=== PATIENT | female | born 1935 | race Caucasian/White ===

== ENCOUNTER 2019-07-15 12:10 | Inpatient (IN) | payer MEDICARE ==
[2019-07-15] MEDS ORDERED: SODIUM CHLORIDE 0.9% 1,000 ML IV ONE ×2 (13:30)
[2019-07-15] MEDS ORDERED: KETOROLAC 30 MG/ML 1 ML VIAL IVP STA (13:33)
[2019-07-15] MEDS ORDERED: ACETAMINOPHEN TAB 500 MG TAB PO STA (13:33)
--- NOTE | 2019-07-15 13:46 | ED ---
Altered Mental Status HPI - General Chief Complaint: Altered Mental Status Stated Complaint: pain all over, confusion Time Seen by Provider: 07/15/19 12:38 Source: patient, family, RN notes reviewed, old records reviewed Mode of arrival: wheelchair Limitations: no limitations - History of Present Illness Initial Comments: Patient is an 9-year-old female, presents emergency room today with her brother and her neighbor. She presents today with fever chills, some episodes of confusion, also complains of a sore throat and general body aches. Patient reports that she has had no associated chest pain. Denies any history of sick contacts. Patient also complains of some drainage from her right eye as well. She relates that she has had some visual hallucinations today patient's this morning today when walking into her living room stating that she saw Bird. She then that quickly realized this was not the case. She denies any headache at this time. Her main complaint is just diffuse body aches. She also states she's not been eating or drinking well. - Related Data Allergies Allergy/AdvReac Type Severity Reaction Status Date / Time celecoxib [From Celebrex] Allergy Rash/Hives Verified 07/15/19 12:18 infliximab [From Remicade] Allergy Rash/Hives Verified 07/15/19 12:18 Review of Systems ROS Statement: Those systems with pertinent positive or pertinent negative responses have been documented in the HPI. ROS Other: All systems not noted in ROS Statement are negative. Past Medical History Past Medical History: Diabetes Mellitus, Hyperlipidemia, Hypertension Additional Past Medical History / Comment(s): basal cell CA History of Any Multi-Drug Resistant Organisms: None Reported Additional Past Surgical History / Comment(s): breast biopsy Past Psychological History: No Psychological Hx Reported Smoking Status: Never smoker Past Alcohol Use History: None Reported Past Drug Use History: None Reported General Exam - General Exam Comments Initial Comments: 83-year-old female. Alert and oriented 3 at this time. Patient appears quite dehydrated. Dry lips and skin. Limitations: no limitations General appearance: alert, in no apparent distress Head exam: Present: atraumatic, normocephalic, normal inspection Eye exam: Present: normal appearance, PERRL, EOMI. Absent: scleral icterus, conjunctival injection, periorbital swelling ENT exam: Present: mucous membranes dry, mucous membranes moist. Absent: normal exam, normal oropharynx Neck exam: Present: normal inspection. Absent: tenderness, meningismus, lymphadenopathy Respiratory exam: Present: normal lung sounds bilaterally. Absent: respiratory distress, wheezes, rales, rhonchi, stridor Cardiovascular Exam: Present: regular rate, normal rhythm, normal heart sounds. Absent: systolic murmur, diastolic murmur, rubs, gallop, clicks GI/Abdominal exam: Present: soft, normal bowel sounds. Absent: distended, tenderness, guarding, rebound, rigid Extremities exam: Present: normal inspection, full ROM, normal capillary refill. Absent: tenderness, pedal edema, joint swelling, calf tenderness Back exam: Present: normal inspection Neurological exam: Present: alert, oriented X3, CN II-XII intact Psychiatric exam: Present: normal affect, normal mood Skin exam: Present: warm, dry, intact, normal color. Absent: rash Course Vital Signs 07/15/19 07/15/19 07/15/19 12:12 13:21 13:30 Temperature 99.9 F H Pulse Rate 82 110 H Respiratory 18 18 Rate Blood Pressure 143/70 134/71 O2 Sat by Pulse 98 81 L 96 Oximetry 07/15/19 07/15/19 07/15/19 13:40 13:50 14:00 Temperature Pulse Rate 112 H 110 H 110 H Respiratory 16 16 28 H Rate Blood Pressure 143/75 166/96 166/96 O2 Sat by Pulse 97 98 97 Oximetry 07/15/19 07/15/19 14:10 14:30 Temperature Pulse Rate 114 H 111 H Respiratory 25 H 14 Rate Blood Pressure 166/96 150/83 O2 Sat by Pulse 96 95 Oximetry Medical Decision Making - Medical Decision Making 83-year-old female presents with concern for dehydration, diffuse body aches, some back discomfort and fevers. Patient's febrile, temperature 100, tachycardic. Labs show evidence of some mild transaminase. Does have elevated lactic acid 2.2. BUN of 30 creatinine of 1.05. Urinalysis shows no acute infection. She does have leukocytosis of 18,000 with a left shift with 16,000. Ultrasound of the gallbladder was completed and shows no signs of acute cholecystitis at this time. Patient also reported some episodes of confusion. She is alert and oriented times here, no acute neurological deficits. CT of the brain was ordered and did show some sinusitis, but no acute intracranial process. She has no signs of auditory or visual hallucinations here. Patient given Rocephin for infection coverage at this time. Blood cultures were completed as well. I discussed case with Dr. Mckeon and discussed the case with Sounds physician. - Lab Data Result diagrams: 07/15/19 13:28 07/15/19 13:28 Lab Results 07/15/19 07/15/19 07/15/19 Range/Units 13:28 13:28 13:28 WBC 18.2 H (3.8-10.6) k/uL RBC 4.60 (3.80-5.40) m/uL Hgb 13.1 (11.4-16.0) gm/dL Hct 40.4 (34.0-46.0) % MCV 87.9 (80.0-100.0) fL MCH 28.5 (25.0-35.0) pg MCHC 32.5 (31.0-37.0) g/dL RDW 13.8 (11.5-15.5) % Plt Count 244 (150-450) k/uL Neutrophils % 92 % Lymphocytes % 1 % Monocytes % 4 % Eosinophils % 1 % Basophils % 1 % Neutrophils # 16.7 H (1.3-7.7) k/uL Lymphocytes # 0.2 L (1.0-4.8) k/uL Monocytes # 0.7 (0-1.0) k/uL Eosinophils # 0.1 (0-0.7) k/uL Basophils # 0.3 H (0-0.2) k/uL PT (9.0-12.0) sec INR (<1.2) APTT (22.0-30.0) sec Sodium 137 (137-145) mmol/L Potassium 3.4 L (3.5-5.1) mmol/L Chloride 97 L (98-107) mmol/L Carbon Dioxide 27 (22-30) mmol/L Anion Gap 13 mmol/L BUN 30 H (7-17) mg/dL Creatinine 1.05 H (0.52-1.04) mg/dL Est GFR (CKD-EPI)AfAm 57 (>60 ml/min/1.73 sqM) Est GFR (CKD-EPI)NonAf 50 (>60 ml/min/1.73 sqM) Glucose 204 H (74-99) mg/dL Plasma Lactic Acid Shadi 2.2 H* (0.7-2.0) mmol/L Calcium 9.4 (8.4-10.2) mg/dL Total Bilirubin 1.1 (0.2-1.3) mg/dL AST 125 H (14-36) U/L ALT 77 H (4-34) U/L Alkaline Phosphatase 143 H (38-126) U/L Troponin I (0.000-0.034) ng/mL Total Protein 7.1 (6.3-8.2) g/dL Albumin 4.0 (3.5-5.0) g/dL Urine Color Urine Appearance (Clear) Urine pH (5.0-8.0) Ur Specific [place] (1.001-1.035) Urine Protein (Negative) Urine Glucose (UA) (Negative) Urine Ketones (Negative) Urine Blood (Negative) Urine Nitrite (Negative) Urine Bilirubin (Negative) Urine Urobilinogen (<2.0) mg/dL Ur Leukocyte Esterase (Negative) Urine WBC (0-5) /hpf Ur Squamous Epith Cells (0-4) /hpf Hyaline Casts (0-2) /lpf Urine Mucus (None) /hpf Urine Opiates Screen (NotDetected) Ur Oxycodone Screen (NotDetected) Urine Methadone Screen (NotDetected) Ur Propoxyphene Screen (NotDetected) Ur Barbiturates Screen (NotDetected) U Tricyclic Antidepress (NotDetected) Ur Phencyclidine Scrn (NotDetected) Ur Amphetamines Screen (NotDetected) U Methamphetamines Scrn (NotDetected) U Benzodiazepines Scrn (NotDetected) Urine Cocaine Screen (NotDetected) U Marijuana (THC) Screen (NotDetected) Influenza Type A RNA (Not Detectd) Influenza Type B (PCR) (Not Detectd) 07/15/19 07/15/19 07/15/19 Range/Units 13:28 13:28 13:28 WBC (3.8-10.6) k/uL RBC (3.80-5.40) m/uL Hgb (11.4-16.0) gm/dL Hct (34.0-46.0) % MCV (80.0-100.0) fL MCH (25.0-35.0) pg MCHC (31.0-37.0) g/dL RDW (11.5-15.5) % Plt Count (150-450) k/uL Neutrophils % % Lymphocytes % % Monocytes % % Eosinophils % % Basophils % % Neutrophils # (1.3-7.7) k/uL Lymphocytes # (1.0-4.8) k/uL Monocytes # (0-1.0) k/uL Eosinophils # (0-0.7) k/uL Basophils # (0-0.2) k/uL PT 10.5 (9.0-12.0) sec INR 1.0 (<1.2) APTT 27.7 (22.0-30.0) sec Sodium (137-145) mmol/L Potassium (3.5-5.1) mmol/L Chloride (98-107) mmol/L Carbon Dioxide (22-30) mmol/L Anion Gap mmol/L BUN (7-17) mg/dL Creatinine (0.52-1.04) mg/dL Est GFR (CKD-EPI)AfAm (>60 ml/min/1.73 sqM) Est GFR (CKD-EPI)NonAf (>60 ml/min/1.73 sqM) Glucose (74-99) mg/dL Plasma Lactic Acid Shadi (0.7-2.0) mmol/L Calcium (8.4-10.2) mg/dL Total Bilirubin (0.2-1.3) mg/dL AST (14-36) U/L ALT (4-34) U/L Alkaline Phosphatase (38-126) U/L Troponin I 0.026 (0.000-0.034) ng/mL Total Protein (6.3-8.2) g/dL Albumin (3.5-5.0) g/dL Urine Color Urine Appearance (Clear) Urine pH (5.0-8.0) Ur Specific [place] (1.001-1.035) Urine Protein (Negative) Urine Glucose (UA) (Negative) Urine Ketones (Negative) Urine Blood (Negative) Urine Nitrite (Negative) Urine Bilirubin (Negative) Urine Urobilinogen (<2.0) mg/dL Ur Leukocyte Esterase (Negative) Urine WBC (0-5) /hpf Ur Squamous Epith Cells (0-4) /hpf Hyaline Casts (0-2) /lpf Urine Mucus (None) /hpf Urine Opiates Screen (NotDetected) Ur Oxycodone Screen (NotDetected) Urine Methadone Screen (NotDetected) Ur Propoxyphene Screen (NotDetected) Ur Barbiturates Screen (NotDetected) U Tricyclic Antidepress (NotDetected) Ur Phencyclidine Scrn (NotDetected) Ur Amphetamines Screen (NotDetected) U Methamphetamines Scrn (NotDetected) U Benzodiazepines Scrn (NotDetected) Urine Cocaine Screen (NotDetected) U Marijuana (THC) Screen (NotDetected) Influenza Type A RNA Not Detected (Not Detectd) Influenza Type B (PCR) Not Detected (Not Detectd) 07/15/19 Range/Units 13:50 WBC (3.8-10.6) k/uL RBC (3.80-5.40) m/uL Hgb (11.4-16.0) gm/dL Hct (34.0-46.0) % MCV (80.0-100.0) fL MCH (25.0-35.0) pg MCHC (31.0-37.0) g/dL RDW (11.5-15.5) % Plt Count (150-450) k/uL Neutrophils % % Lymphocytes % % Monocytes % % Eosinophils % % Basophils % % Neutrophils # (1.3-7.7) k/uL Lymphocytes # (1.0-4.8) k/uL Monocytes # (0-1.0) k/uL Eosinophils # (0-0.7) k/uL Basophils # (0-0.2) k/uL PT (9.0-12.0) sec INR (<1.2) APTT (22.0-30.0) sec Sodium (137-145) mmol/L Potassium (3.5-5.1) mmol/L Chloride (98-107) mmol/L Carbon Dioxide (22-30) mmol/L Anion Gap mmol/L BUN (7-17) mg/dL Creatinine (0.52-1.04) mg/dL Est GFR (CKD-EPI)AfAm (>60 ml/min/1.73 sqM) Est GFR (CKD-EPI)NonAf (>60 ml/min/1.73 sqM) Glucose (74-99) mg/dL Plasma Lactic Acid Shadi (0.7-2.0) mmol/L Calcium (8.4-10.2) mg/dL Total Bilirubin (0.2-1.3) mg/dL AST (14-36) U/L ALT (4-34) U/L Alkaline Phosphatase (38-126) U/L Troponin I (0.000-0.034) ng/mL Total Protein (6.3-8.2) g/dL Albumin (3.5-5.0) g/dL Urine Color Yellow Urine Appearance Clear (Clear) Urine pH 6.0 (5.0-8.0) Ur Specific [place] 1.025 (1.001-1.035) Urine Protein 2+ H (Negative) Urine Glucose (UA) Negative (Negative) Urine Ketones Trace H (Negative) Urine Blood Negative (Negative) Urine Nitrite Negative (Negative) Urine Bilirubin Negative (Negative) Urine Urobilinogen 2.0 (<2.0) mg/dL Ur Leukocyte Esterase Negative (Negative) Urine WBC 3 (0-5) /hpf Ur Squamous Epith Cells 1 (0-4) /hpf Hyaline Casts 1 (0-2) /lpf Urine Mucus Rare H (None) /hpf Urine Opiates Screen Not Detected (NotDetected) Ur Oxycodone Screen Not Detected (NotDetected) Urine Methadone Screen Not Detected (NotDetected) Ur Propoxyphene Screen Not Detected (NotDetected) Ur Barbiturates Screen Not Detected (NotDetected) U Tricyclic Antidepress Not Detected (NotDetected) Ur Phencyclidine Scrn Not Detected (NotDetected) Ur Amphetamines Screen Not Detected (NotDetected) U Methamphetamines Scrn Not Detected (NotDetected) U Benzodiazepines Scrn Not Detected (NotDetected) Urine Cocaine Screen Not Detected (NotDetected) U Marijuana (THC) Screen Not Detected (NotDetected) Influenza Type A RNA (Not Detectd) Influenza Type B (PCR) (Not Detectd) 07/15/19 13:45 EKG shows sinus tachycardia, biatrial enlargement. Right bundle branch block. Left anterior fascicular block. Biphasic block. Abnormal EKG is noted. Ventricular rate of 111 bpm. AL interval is 152 ms QRS duration is 150 mils seconds. QT QTc is 392/533 ms. - Radiology Data Radiology results: report reviewed Chest x-ray shows no focal consolidation to suggest pneumonia. Right hemidiaphragm elevation is seen and could be chronic. Other i-STAT test can be performed. CT shows no acute intracranial hemorrhage or midline shift. Mild diffuse age-related cervical atrophy and mild to moderate chronic small vessel ischemic change. Acute on chronic paranasal sinus disease is felt present. Suboptimal evaluation due to overlying bowel gas. Gallbladder is partially obscured however no sonographic evidence of cholelithiasis or acute cholecys titis. Liver is partially obscured. Disposition Clinical Impression: Fever, Dehydration, Leukocytosis Disposition: ADMITTED IP TO THIS HOSP Condition: Stable Is patient prescribed a controlled substance at d/c from ED?: No Referrals: Jo Simons MD [Primary Care Provider] - 1-2 days Time of Disposition: 16:24
[2019-07-15 13:48] LABS: Basophils # (A) 0.3 k/uL (0-0.2); Basophils % (A) 1 %; Eosinophils # (A) 0.1 k/uL (0-0.7); Eosinophils % (A) 1 %; HCT 40.4 % (34.0-46.0); HGB 13.1 gm/dL (11.4-16.0); Lymphocytes # (A) 0.2 k/uL (1.0-4.8); Lymphocytes % (A) 1 %; MCH 28.5 pg (25.0-35.0); MCHC 32.5 g/dL (31.0-37.0); MCV 87.9 fL (80.0-100.0); Mean Platelet Volume 7.3; Monocytes # (A) 0.7 k/uL (0-1.0); Monocytes % (A) 4 %; Neutrophils # (A) 16.7 k/uL (1.3-7.7); Neutrophils % (A) 92 %; Platelet Count 244 k/uL (150-450); RDW 13.8 % (11.5-15.5); WBC 18.2 k/uL (3.8-10.6)
[2019-07-15 14:03] LABS: Calcium 9.4 mg/dL (8.4-10.2); Prothrombin Time 10.5 sec (9.0-12.0); Total Bilirubin 1.1 mg/dL (0.2-1.3); Total Protein 7.1 g/dL (6.3-8.2)
[2019-07-15 14:04] LABS: Partial Thromboplastin Time 27.7 sec (22.0-30.0)
--- NOTE | 2019-07-15 14:17 | XR ---
EXAMINATION TYPE: XR chest 2V DATE OF EXAM: 07/15/2019 COMPARISON: NONE HISTORY: Altered mental status TECHNIQUE: Frontal and lateral views of the chest are obtained. FINDINGS: There is no focal air space opacity, pleural effusion, or pneumothorax seen. Right hemidia phragm elevation. The cardiac silhouette size is within normal limits. The osseous structures are i ntact. Exaggerated thoracic kyphosis is seen. IMPRESSION: No focal consolidation to suggest pneumonia. Right hemidiaphragm elevation is seen that could be chronic. Otherwise, sniff test could be performed to evaluate for diaphragmatic paresis.
[2019-07-15] MEDS ORDERED: cefTRIAXone IN SWFI 1,000 MG/10 ML SYRINGE IVP STA (14:22)
[2019-07-15 14:24] LABS: Appearance,Urine Clear (Clear); Bilirubin,Urine Negative (Negative); Blood,Urine Negative (Negative); Color,Urine Yellow; Glucose,Urine (UA) Negative (Negative); Hyaline Casts,Urine 1 /lpf (0-2); Ketones,Urine Trace (Negative); Leukocyte Esterase,Urine Negative (Negative); Mucus,Urine Rare /hpf; Nitrite,Urine Negative (Negative); Protein,Urine 2+ (Negative); Specific Gravity,Urine 1.025 (1.001-1.035); Squamous Epithelial Cell,Urine 1 /hpf (0-4); WBC,Urine 3 /hpf (0-5)
[2019-07-15 14:33] LABS: Amphetamine Screen,Urine Not Detected (NotDetected); Barbiturate Screen,Urine Not Detected (NotDetected); Benzodiazepines Screen,Urine Not Detected (NotDetected); Cocaine Screen,Urine Not Detected (NotDetected); Methadone Screen, Urine Not Detected (NotDetected); Opiate Screen,Urine Not Detected (NotDetected); Oxycodone Screen, Urine Not Detected (NotDetected); Phencyclidine Screen,Urine Not Detected (NotDetected); Tricyclic Antidepressant,Urine Not Detected (NotDetected); Urn Cannabinoid Scrn Not Detected (NotDetected)
[2019-07-15 14:42] LABS: Potassium 3.4 mmol/L (3.5-5.1)
--- NOTE | 2019-07-15 15:22 | US ---
EXAMINATION TYPE: US gallbladder DATE OF EXAM: 07/15/2019 COMPARISON: NONE CLINICAL HISTORY: elevated transaminase, fever. EXAM MEASUREMENTS: Liver Length: 13.4 cm Gallbladder Wall: 0.2 cm CBD: 0.4 cm Right Kidney: 9.2 x 4.4 x3.7 cm cm Pancreas: Tail obscured by overlying bowel gas Liver: Partially Obscured by overlying bowel gas Gallbladder: Partially Obscured by overlying bowel gas. No stones seen. Wall not thickened. Evidence for sonographic Pantoja's sign: No CBD: wnl Right Kidney: wnl IMPRESSION: Suboptimal evaluation due to overlying bowel gas. Gallbladder is partially obscured howev er no sonographic evidence of cholelithiasis or acute cholecystitis is seen. The liver is also partia lly obscured. No gross masses seen.
--- NOTE | 2019-07-15 15:53 | CT ---
EXAMINATION TYPE: CT brain wo con DATE OF EXAM: 07/15/2019 HISTORY: Weakness and fever. CT DLP: 1096.4 mGycm. Automated Exposure Control for Dose Reduction was Utilized. TECHNIQUE: CT scan of the head is performed without contrast. COMPARISON: None. FINDINGS: There is no acute intracranial hemorrhage or midline shift identified. There is diffuse v entricular and sulcal prominence consistent with diffuse age-related cerebral atrophy. There is low- attenuation in the periventricular white matter consistent with chronic small vessel ischemic change in patient of this age. Air-fluid level in the right maxillary sinus. Mild to moderate posterior muco suri thickening left maxillary sinus. Fluid opacity bilateral sphenoid sinuses. Some diffuse opacity o f bilateral ethmoid sinuses. IMPRESSION: No acute intracranial hemorrhage or midline shift. There is mild diffuse age-related ce rebral atrophy and mild to moderate chronic small vessel ischemic change noted. Acute on chronic para nasal sinus disease is felt present, correlate clinically
[2019-07-15] MEDS ORDERED: NALOXONE 0.4 MG/ML 1 ML VIAL IV PRN (16:26)
[2019-07-15] MEDS ORDERED: MORPHINE SULFATE 4 MG/ML SYRINGE IV PRN (16:26)
[2019-07-15] MEDS ORDERED: LORazepam 2 MG/ML INJ IV PRN (16:26)
[2019-07-15] MEDS ORDERED: IBUPROFEN 400 MG TAB PO PRN (16:26)
[2019-07-15] MEDS ORDERED: traMADol 50 MG TAB PO PRN (16:26)
[2019-07-15] MEDS ORDERED: KETOROLAC 30 MG/ML 1 ML VIAL IVP PRN (16:26)
[2019-07-15] MEDS ORDERED: SODIUM CHLORIDE 0.9% 1,000 ML IV SCH ×2 (16:30→17:30)
[2019-07-15] MEDS ORDERED: DEXTROSE 5%-0.45% NACL 1,000 ML IV SCH (17:00)
[2019-07-15] MEDS ORDERED: AZITHROMYCIN 500 MG TAB PO SCH (17:15)
[2019-07-15] MEDS ORDERED: THIAMINE 100 MG TAB PO SCH (17:15)
--- NOTE | 2019-07-15 17:17 | P.HPIM ---
History of Present Illness Chief Complaint: Generalized weakness This is a 83-year-old female with past medical history of rheumatoid arthritis and hypothyroidism who came to emergency department for ablation of generalized weakness and confusion. Patient history begins about 2 weeks ago when she developed URI like illness. Otherwise very active patient in good functional status became very weak and drained tired with low some malaise and started spending most of the time in the bed. Her appetite was diminished his she felt nauseated, her oral intake significantly diminished which lead to more weakness. Patient is not seeking any medical help for this notion to continue antibiotics in the test. Her weakness progressed and day of admission she was unable to get out of the bed. She was sweating profusely soaking her bed in sweat. She felt musculoskeletal pain and discomfort all over her body. She had some loose bowel movements no shanelle diarrhea or blood in the stool. She did not have any headache or vision changes. She still complaining of sore dry throat. She has some mild minimally productive cough. No chest pain or palpitations. She not experience any joint swelling, skin rashes. Patient was diagnosed with rheumatoid arthritis over 30 years ago and had multiple TB tests that were negative in the past. She is to be on biologic spot for many years now she has been on methotrexate. She denies any recent [place] eling or sick contacts. She denies any exposure to any animals. In emergency department she was found to have white cell count of 18 with predominance of neutrophils. Potassium was 3.4 and creatinine BUN elevated with elevated glucose. Lactic acid was 2.2 and she has mildly elevated liver enzymes and alk phos with normal bilirubin. CT of the head was unremarkable. Ultrasound of the right upper quadrant was not definitive for cholecystitis. Chest x-ray did not show any acute infiltrates. She was given IV fluids and ceftriaxone she is reporting feeling slightly better Review of Systems Review of systems performed and negative except mentioned in HPI Past Medical History Past Medical History: Diabetes Mellitus, Hyperlipidemia, Hypertension Additional Past Medical History / Comment(s): basal cell CA History of Any Multi-Drug Resistant Organisms: None Reported Additional Past Surgical History / Comment(s): breast biopsy Past Psychological History: No Psychological Hx Reported Smoking Status: Never smoker Past Alcohol Use History: None Reported Past Drug Use History: None Reported Medications and Allergies Allergies Allergy/AdvReac Type Severity Reaction Status Date / Time celecoxib [From Celebrex] Allergy Rash/Hives Verified 07/15/19 12:18 infliximab [From Remicade] Allergy Rash/Hives Verified 07/15/19 12:18 Physical Exam Vitals: Vital Signs Temp Pulse Resp BP Pulse Ox 07/15/19 16:48 90 18 147/71 98 07/15/19 14:30 111 H 14 150/83 95 07/15/19 14:10 114 H 25 H 166/96 96 07/15/19 14:00 110 H 28 H 166/96 97 07/15/19 13:50 110 H 16 166/96 98 07/15/19 13:40 112 H 16 143/75 97 07/15/19 13:30 110 H 18 134/71 96 07/15/19 13:21 81 L 07/15/19 12:12 99.9 F H 82 18 143/70 98 Intake and Output 07/15/19 07/15/19 07/15/19 06:59 14:59 22:59 Other: Weight 65.771 kg Vital Signs: I have reviewed the vital signs. GENERAL: Well-nourished, Well-developed , no apparent distress, cooperative, she appears fatigued and very tired Eyes: PERRL, extraoculry movements intact, she has mild redness on the conjunctiva of the right eye with mucoid exudate Head: : Atraumatic external nose and ears, oropharyngeal mucosa is red and dry without any exudates Neck: Symmetric, trachea midline, No thyromegaly, no masses or neck vain pulsation, no neck rigidity CVS: +S1/S2, No murmurs or gallops. Peripheral pulses 2+ and equal in all extremities. RESP: Unlabored respiratory effort. Clear to auscultation bilaterally. Abdomen: Bowel sounds present in all 4 quadrants, Soft to palpation, Nontender/Nondistended, No hepatosplenomegaly, no hernias or masses, no CVA tnderness Musculoskeletal: Extremities w/o deformity, No cyanosis or clubbing, no joint swelling Skin: Warm, Dry. No rashes or lesions Neuro: electrician deck II-XII grossly intact, motor strenght 5/5 i upper and lower extremities, no clonus, patellar DTRs 2+ and sympetrical Psych: Awake, Alert, & Oriented (AAO) x3 Appropriate mood and affect Results CBC & Chem 7: 07/15/19 13:28 07/15/19 13:28 Labs: Abnormal Lab Results - Last 24 Hours (Table) 07/15/19 07/15/19 07/15/19 Range/Units 13:28 13:28 13:28 WBC 18.2 H (3.8-10.6) k/uL Neutrophils # 16.7 H (1.3-7.7) k/uL Lymphocytes # 0.2 L (1.0-4.8) k/uL Basophils # 0.3 H (0-0.2) k/uL Potassium 3.4 L (3.5-5.1) mmol/L Chloride 97 L (98-107) mmol/L BUN 30 H (7-17) mg/dL Creatinine 1.05 H (0.52-1.04) mg/dL Glucose 204 H (74-99) mg/dL Plasma Lactic Acid Shadi 2.2 H* (0.7-2.0) mmol/L AST 125 H (14-36) U/L ALT 77 H (4-34) U/L Alkaline Phosphatase 143 H (38-126) U/L Urine Protein (Negative) Urine Ketones (Negative) Urine Mucus (None) /hpf 07/15/19 Range/Units 13:50 WBC (3.8-10.6) k/uL Neutrophils # (1.3-7.7) k/uL Lymphocytes # (1.0-4.8) k/uL Basophils # (0-0.2) k/uL Potassium (3.5-5.1) mmol/L Chloride (98-107) mmol/L BUN (7-17) mg/dL Creatinine (0.52-1.04) mg/dL Glucose (74-99) mg/dL Plasma Lactic Acid Shadi (0.7-2.0) mmol/L AST (14-36) U/L ALT (4-34) U/L Alkaline Phosphatase (38-126) U/L Urine Protein 2+ H (Negative) Urine Ketones Trace H (Negative) Urine Mucus Rare H (None) /hpf Assessment and Plan Assessment: Impression: 1. Acute toxic metabolic encephalopathy 2. Extreme malaise 3. Sepsis 4. Respiratory illness 5. Acute kidney injury 6. Hypokalemia 7. Hypothyroid 8. Rheumatoid arthritis Plan: This is a 83-year-old female with history of rheumatoid arthritis was now presenting with protracted generalized illness. This started like URI-like symptoms with sore throat and nasal congestion and then started having protracted clinical course with generalized weakness malaise night sweats and low-grade fever with diminished oral intake and dehydration. Patient is extremely weak at this point and appears dehydrated. Influenza test was negative. The Main concern remains sepsis not immediately clearly obvious source although she does have some respiratory symptoms and CT of the head showed ascites. She has nasal congestion oropharyngeal erythema and cough. Blood cultures have been p erformed and we will continue patient on ceftriaxone and Zithromax for now. Other concern about the right upper quadrant ultrasound did not show acute cholecystitis liver enzymes mildly elevated she's getting hepatitis panel at this point. We will consider to revisit possibility of any gallbladder pathology but clinically indicated imaging for now not consistent with this finding Given the patient's previous rheumatological illness another concern remain polymyalgia rheumatica and giant cell arteritis getting diffuse musculoskeletal pain and weakness. Her neurological exam is intact hence I doubt clinically given bradycardia syndrome at this point. We'll obtain sedimentation rate and if extremely elevated we'll consider involving, rheumatology this point. check CPK Check pro-calcitonin Continue levothyroxine and check TSH Repeat chest x-ray after hydration patient is a full code Her brother is surrogate decision maker 2 or more midnights stay expected
[2019-07-15 19:10] LABS: C Reactive Protein 298.8 mg/L (<10.0)
[2019-07-15] MEDS: ASCORBIC ACID 500 MG TAB PO SCH (21:23)
[2019-07-15] MEDS: OXYMETAZOLINE 0.05% NASL SPRAY 1 SPRAY BOTTLE NASAL SCH (21:24)
[2019-07-15] MEDS: ACETAMINOPHEN TAB 325 MG TAB PO PRN (23:44)
[2019-07-15 23:51] LABS: Glucose,Whole Blood 151 mg/dL (75-99)
[2019-07-16 00:20] LABS: Hepatitis A Antibody IgM Non-Reactive (Non-Reactive); Hepatitis B Core IgM Non-Reactive (Non-Reactive); Hepatitis B Surface Antigen Non-Reactive (Non-Reactive); Hepatitis C IgG Antibody Non-Reactive (Non-Reactive)
--- NOTE | 2019-07-16 00:30 | XR ---
EXAMINATION TYPE: XR chest 1V portable DATE OF EXAM: 07/16/2019 COMPARISON: 07/15/2019 HISTORY: Altered mental status TECHNIQUE: FINDINGS: There is some elevation of the right diaphragm. There is mild atelectasis right lung base. There is no heart failure. Heart size is normal. There are no hilar masses. There is calcified granul omata in the right lower lobe. IMPRESSION: Mild atelectasis right lung base. No heart failure. Atelectasis slightly worse than exam yesterday.
[2019-07-16] MEDS ORDERED: RX INFO: IV CONTRAST WAS GIVEN 1 EACH MISC MISCELLANE PRN (00:37)
[2019-07-16] MEDS ORDERED: IOPAMIDOL CONTRAST (ORAL USE) VIAL PO PRN (00:37)
[2019-07-16 01:06] LABS: Basophils # (A) 0.1 k/uL (0-0.2); Basophils % (A) 0 %; Eosinophils # (A) 0.1 k/uL (0-0.7); Eosinophils % (A) 1 %; HCT 36.4 % (34.0-46.0); HGB 11.8 gm/dL (11.4-16.0); Lymphocytes # (A) 0.3 k/uL (1.0-4.8); Lymphocytes % (A) 2 %; MCH 29.1 pg (25.0-35.0); MCHC 32.4 g/dL (31.0-37.0); MCV 89.8 fL (80.0-100.0); Mean Platelet Volume 7.2; Monocytes # (A) 0.7 k/uL (0-1.0); Monocytes % (A) 4 %; Neutrophils # (A) 16.7 k/uL (1.3-7.7); Neutrophils % (A) 93 %; Platelet Count 205 k/uL (150-450); RBC 4.05 m/uL (3.80-5.40); WBC 17.9 k/uL (3.8-10.6)
[2019-07-16 01:13] LABS: Calcium 8.2 mg/dL (8.4-10.2); Potassium 2.9 mmol/L (3.5-5.1)
--- NOTE | 2019-07-16 01:22 | P.EN ---
A-team called for the patient at ~ 11:50 am. As per the nursing staff, the patient was walking to the restroom when she was noted to be shaking while standing, pale, diaphoretic, and in respiratory distress. She was placed back on the bed. The patient was evaluated at the bedside. Initial vitals: T 100.4, P130, SpO2 70% on RA, BP 168/72; subsequent vitals while on 100% on non-rebreath er: T 102.2 (axillary), P 140, SpO2 100%, BP 134/72. The patient was initially somewhat confused which then improved. She reported minimal SOB and feeling feverish but denied any additional complaints. Denied chest pain, SOB, abdominal pain, cough, nausea, vomiting, dysuria, headache, weakness, or visual disturbances. General: Ill-appearing F, in no acute distress, appears stated age, obese HEENT: NC/AT, anicteric sclerae, moist conjunctiva, no lid-lag, PERRLA Cardiovascular: S1/S2 wnl, tachycardic, no murmurs, rubs, or gallops Lungs: R base mild crackles, no ronchi or wheezing appreciated, normal respiratory effort, no accessory muscle use Abdominal: Soft, non-tender, non-distended, no guarding, rebound, or rigidity Skin: Warm, dry Extremities: No edema or contractures Psychiatric: Alert and oriented to person and time, knows she is in hospital though unable to name it Neuro: CN II-XII grossly intact, Strength 5/5 in all 4 extremities, Speech intact, Sensation to light touch grossly intact throughout. Kernig's and Brudzinski negative. No nuchal rigidity. Assessment/Plan Sepsis, unclear etiology -Patient currently on Azithromycin and Ceftriaxone -Transfer patient to selective -Stat portable CXR showing mildly worsened atelectasis but otherwise unremarkable -Repeat flu swab -Obtain CT chest abdomen and pelvis with contrast -Defer antibiotics until influenza testing and computed tomography scan -Administered 1 L of normal saline bolus
--- NOTE | 2019-07-16 01:33 | CT ---
EXAMINATION TYPE: CT ChestAbdPelvis w con DATE OF EXAM: 07/16/2019 COMPARISON: HISTORY: Patient presents with fever of unkown origin. CT DLP: 993.8 mGycm Automated exposure control for dose reduction was used. CONTRAST: Performed with IV Contrast, patient injected with 80mL mL of Isovue 300. Multiple axial sections were obtained from the thoracic inlet to the floor the pelvis with intravenou s contrast Isovue 80 mL. There is some patchy nodular infiltrate at the right posterior lung base. There is minimal subsegment al atelectasis at both lung bases. There is no pleural effusion. Heart size is normal. There calcifie d mediastinal lymph nodes. Thoracic aorta is intact. There is no pneumothorax. There is no pleural ef fusion. There is no pericardial effusion. Liver and spleen appear normal. Bile ducts are not dilated. Gallbladder appears normal. There is no p ancreatic mass. Stomach is intact. There is no adrenal mass. Kidneys show satisfactory contrast opacification. There is no hydronephrosi s. There are multiple small renal cysts that measure up to 1 cm. There is no evidence of a solid lev l mass. There is no perinephric fluid. There is no retroperitoneal adenopathy. Bladder distends eleanor hly. Abdominal aorta is atheromatous. There is no inguinal hernia. Uterus is anteverted. There is no free fluid in the pelvis. There is no mesenteric edema. There is no ascites or free air. There is no evidence of thickened appendix. Bony pelvis is intact. Thoracic and lumbar spine are intact. There is no compression fracture. There is no evidence of bowel obstruction. IMPRESSION: Old granulomatous disease. There is some mild nodular infiltrate right lower lobe. This could be a ca use for fever. This is likely inflammatory. No acute abnormality within the abdomen and pelvis.
[2019-07-16] MEDS: POTASSIUM CHLORIDE ER 20 MEQ TAB.ER PO SCH ×2 (01:59→05:26)
[2019-07-16] MEDS: POTASSIUM CHLORIDE 10 MEQ in WATER FOR INJECTION 1 100ML.BAG IVPB SCH ×2 (02:00→03:47)
[2019-07-16] MEDS ORDERED: VANCOMYCIN IV PER PHARMACY 1 EACH MISC MISCELLANE PRN (02:19)
[2019-07-16] MEDS ORDERED: CLOPIDOGREL 75 MG TAB PO STA (02:26)
[2019-07-16] MEDS ORDERED: HEPARIN SODIUM,PORCINE 5,000 UNIT/ML 1 ML VIAL IV ONE (02:28)
[2019-07-16] MEDS ORDERED: HEPARIN SODIUM,PORCINE 5,000 UNIT/ML 1 ML VIAL IV PRN (02:28)
[2019-07-16] MEDS ORDERED: HEPARIN SOD,PORK IN 0.45% NACL 25,000 UNIT in 0.45% NACL 1 250ML.BAG IV SCH (02:30)
[2019-07-16] MEDS ORDERED: CEFEPIME 2 GM in SODIUM CHLORIDE 0.9% 100 ML IVPB SCH (02:30)
[2019-07-16 03:08] LABS: INR 1.1 (<1.2); Partial Thromboplastin Time 28.6 sec (22.0-30.0)
[2019-07-16] MEDS ORDERED: VANCOMYCIN 1,000 MG in SODIUM CHLORIDE 0.9% 250 ML IVPB ONE ×2 (04:00→06:00)
[2019-07-16 06:48] LABS: HCT 36.6 % (34.0-46.0); HGB 11.8 gm/dL (11.4-16.0); MCH 29.1 pg (25.0-35.0); MCHC 32.2 g/dL (31.0-37.0); MCV 90.6 fL (80.0-100.0); Mean Platelet Volume 7.9; Platelet Count 218 k/uL (150-450); RBC 4.04 m/uL (3.80-5.40); RDW 14.1 % (11.5-15.5); WBC 25.9 k/uL (3.8-10.6)
[2019-07-16 07:14] LABS: Albumin 3.2 g/dL (3.5-5.0); Calcium 8.2 mg/dL (8.4-10.2); Potassium 3.7 mmol/L (3.5-5.1); Total Protein 6.3 g/dL (6.3-8.2)
[2019-07-16 07:29] LABS: Total Bilirubin 0.9 mg/dL (0.2-1.3)
--- NOTE | 2019-07-16 08:51 | P.PN ---
Subjective Summary: 83-year-old female with history of rheumatoid arthritis and hypothyroidism presented with 2 week history of of respiratory illness low-grade fever malaise and decrease by mouth intake. She started of initially with a sore throat and malaise and then became profoundly weak and tired with muscle aches bodyaches and cough and expectoration. She was started on sepsis protocol with IV fluids antibiotics blood cultures. Interval history: Events from last night noted. Patient had high-grade fever with tachycardia up to 140s. Her blood pressure was stable. Her mentation was stable. She did not complain of any chest pain or any significant shortness of breath order she did require some little but more oxygen than initially. She was treated with boluses of IV fluids, antipyretics, antibiotic coverage was broadened. EKG shows sinus tachycardia and pre-existing bifascicular block. Her troponin became acutely elevated and she was given 300 mg of Plavix and started on heparin drip. CT of the chest abdomen and pelvis showed right lower lobe infiltrate. CT of the head done in emergency department showed sinusitis. This morning patient states that she's feeling much better. She is up in the chair and she was feeling hungry this morning. She denies any chest pain. She feels that her breathing is a bit more difficult than yesterday but she maintains on 2 L of nasal cannula. She has a dry cough mostly minimally productive of yellowish sputum. She states that her all of her body aches and muscle aches have resolved. She denies any headache neck pain photophobia [place] vomiting abdominal pain or diarrhea. She states that she has more energy comparing to yesterday that overall she is feeling better. Patient states that she is not ALLERGIC to aspirin but only she was told to avoid taking NSAIDs to avoid stomach upset due to taking methotrexate. She states that she takes aspirin occasionally at home. Patient states that she has advanced directive and that she wishes to be DO NOT RESUSCITATE Objective - Vital Signs Vital signs: Vital Signs Temp 98.0 F 07/16/19 04:00 Pulse 111 H 07/16/19 04:00 Resp 18 07/16/19 04:00 BP 123/65 07/16/19 04:00 Pulse Ox 95 07/16/19 04:00 Intake & Output 07/15/19 07/16/19 07/16/19 18:59 06:59 18:59 Intake Total 1050 Output Total 700 Balance 350 Weight 65.771 kg 65.771 kg Intake: Intake, IV Titration 1050 Amount Cefepime 2 gm In Sodium 200 Chloride 0.9% 100 ml @ 200 mls/hr IVPB Q8H [facility] Rx#:[id number] Potassium Chloride 10 meq 200 In Water For Injection 1 100ml.bag @ 100 mls/hr IVPB Q1H [facility] Rx#: [id number] Sodium Chloride 0.9% 1, 400 000 ml @ 100 mls/hr IV . Q10H [facility] Rx#:[id number] Vancomycin 1,000 mg In 250 Sodium Chloride 0.9% 250 ml @ 125 mls/hr IVPB Q24H [facility] Rx#:[id number] Output: Urine 700 Other: Voiding Method Bedside Commode # Voids 1 - Exam Vital Signs: I have reviewed the vital signs. GENERAL: Well-nourished, Well-developed , no apparent distress, cooperative Eyes: PERRL, extraoculry movements intact, clear conjunctiva Head: : Atraumatic external nose and ears, oropharyngeal mucosa is moist without lesions or exudates Neck: Symmetric, trachea midline, No thyromegaly, no masses or neck vain pulsation, no neck rigidity CVS: Tachycardic, regular, no significant murmurs, no rubs RESP: Unlabored respiratory effort. Breath sounds are present bilaterally and her course, she has been basilar inspiratory crackles, he wheezes expiratory Abdomen: Bowel sounds present in all 4 quadrants, Soft to palpation, Nontender/Nondistended, No hepatosplenomegaly, no hernias or masses, no CVA tnderness Musculoskeletal: Extremities w/o deformity, No cyanosis or clubbing, no joint swelling Skin: Warm, Dry. 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, motor strenght 5/5 i upper and lower extremities, no clonus, patellar DTRs 2+ and sympetrical Psych: Awake, Alert, & Oriented (AAO) x3 Appropriate mood and affect - Labs CBC & Chem 7: 07/16/19 06:00 07/16/19 06:00 Labs: Abnormal Lab Results - Last 24 Hours (Table) 07/15/19 07/15/19 07/15/19 Range/Units 13:28 13:28 13:28 WBC 18.2 H (3.8-10.6) k/uL Neutrophils # 16.7 H (1.3-7.7) k/uL Lymphocytes # 0.2 L (1.0-4.8) k/uL Basophils # 0.3 H (0-0.2) k/uL Sodium (137-145) mmol/L Potassium 3.4 L (3.5-5.1) mmol/L Chloride 97 L (98-107) mmol/L BUN 30 H (7-17) mg/dL Creatinine 1.05 H (0.52-1.04) mg/dL Glucose 204 H (74-99) mg/dL POC Glucose (mg/dL) (75-99) mg/dL Plasma Lactic Acid Shadi 2.2 H* (0.7-2.0) mmol/L Calcium (8.4-10.2) mg/dL AST 125 H (14-36) U/L ALT 77 H (4-34) U/L Alkaline Phosphatase 143 H (38-126) U/L Troponin I (0.000-0.034) ng/mL C-Reactive Protein (<10.0) mg/L Albumin (3.5-5.0) g/dL TSH (0.465-4.680) mIU/L Urine Protein (Negative) Urine Ketones (Negative) Urine Mucus (None) /hpf 07/15/19 07/15/19 07/15/19 Range/Units 13:50 18:00 18:00 WBC (3.8-10.6) k/uL Neutrophils # (1.3-7.7) k/uL Lymphocytes # (1.0-4.8) k/uL Basophils # (0-0.2) k/uL Sodium (137-145) mmol/L Potassium (3.5-5.1) mmol/L Chloride (98-107) mmol/L BUN (7-17) mg/dL Creatinine (0.52-1.04) mg/dL Glucose (74-99) mg/dL POC Glucose (mg/dL) (75-99) mg/dL Plasma Lactic Acid Shadi 2.1 H* (0.7-2.0) mmol/L Calcium (8.4-10.2) mg/dL AST (14-36) U/L ALT (4-34) U/L Alkaline Phosphatase (38-126) U/L Troponin I (0.000-0.034) ng/mL C-Reactive Protein 298.8 H (<10.0) mg/L Albumin (3.5-5.0) g/dL TSH (0.465-4.680) mIU/L Urine Protein 2+ H (Negative) Urine Ketones Trace H (Negative) Urine Mucus Rare H (None) /hpf 07/15/19 07/15/19 07/16/19 Range/Units 22:20 23:39 00:45 WBC (3.8-10.6) k/uL Neutrophils # (1.3-7.7) k/uL Lymphocytes # (1.0-4.8) k/uL Basophils # (0-0.2) k/uL Sodium (137-145) mmol/L Potassium (3.5-5.1) mmol/L Chloride (98-107) mmol/L BUN (7-17) mg/dL Creatinine (0.52-1.04) mg/dL Glucose (74-99) mg/dL POC Glucose (mg/dL) 151 H (75-99) mg/dL Plasma Lactic Acid Shadi 2.1 H* (0.7-2.0) mmol/L Calcium (8.4-10.2) mg/dL AST (14-36) U/L ALT (4-34) U/L Alkaline Phosphatase (38-126) U/L Troponin I 0.544 H* (0.000-0.034) ng/mL C-Reactive Protein (<10.0) mg/L Albumin (3.5-5.0) g/dL TSH (0.465-4.680) mIU/L Urine Protein (Negative) Urine Ketones (Negative) Urine Mucus (None) /hpf 07/16/19 07/16/19 07/16/19 Range/Units 00:45 00:45 06:00 WBC 17.9 H (3.8-10.6) k/uL Neutrophils # 16.7 H (1.3-7.7) k/uL Lymphocytes # 0.3 L (1.0-4.8) k/uL Basophils # (0-0.2) k/uL Sodium 134 L 136 L (137-145) mmol/L Potassium 2.9 L (3.5-5.1) mmol/L Chloride (98-107) mmol/L BUN 24 H 21 H (7-17) mg/dL Creatinine (0.52-1.04) mg/dL Glucose 163 H 159 H (74-99) mg/dL POC Glucose (mg/dL) (75-99) mg/dL Plasma Lactic Acid Shadi (0.7-2.0) mmol/L Calcium 8.2 L 8.2 L (8.4-10.2) mg/dL AST 143 H (14-36) U/L ALT 90 H (4-34) U/L Alkaline Phosphatase 138 H (38-126) U/L Troponin I (0.000-0.034) ng/mL C-Reactive Protein (<10.0) mg/L Albumin 3.2 L (3.5-5.0) g/dL TSH 0.301 L (0.465-4.680) mIU/L Urine Protein (Negative) Urine Ketones (Negative) Urine Mucus (None) /hpf 07/16/19 07/16/19 Range/Units 06:00 06:00 WBC 25.9 H (3.8-10.6) k/uL Neutrophils # (1.3-7.7) k/uL Lymphocytes # (1.0-4.8) k/uL Basophils # (0-0.2) k/uL Sodium (137-145) mmol/L Potassium (3.5-5.1) mmol/L Chloride (98-107) mmol/L BUN (7-17) mg/dL Creatinine (0.52-1.04) mg/dL Glucose (74-99) mg/dL POC Glucose (mg/dL) (75-99) mg/dL Plasma Lactic Acid Shadi (0.7-2.0) mmol/L Calcium (8.4-10.2) mg/dL AST (14-36) U/L ALT (4-34) U/L Alkaline Phosphatase (38-126) U/L Troponin I 3.970 H* (0.000-0.034) ng/mL C-Reactive Protein (<10.0) mg/L Albumin (3.5-5.0) g/dL TSH (0.465-4.680) mIU/L Urine Protein (Negative) Urine Ketones (Negative) Urine Mucus (None) /hpf Assessment and Plan Assessment: 1. Sepsis Clinically was probably due to respiratory infection with the infiltrate in the right lower lobe consistent with pneumonia Clinically and radiologically no any other opens foci of infection Subscripted include high-grade fever, tachycardia and white cell count elevation Clinically she is doing much better this morning has more energy is coming back Suspect the patient had a viral infection with possible secondary pneumonia Continue ceftriaxone, Zithromax and and vancomycin for small possibility of MRSA pneumonia after viral illness Blood cultures no growth to date CRP significantly elevated Pro-calcitonin and sedimentation rate pending Overall patient is to be monitored very closely since she has underlying rheumatological disease to rule out any mimics of sepsis-like PMNR and just some arthritis or adult onset still's disease or even rare HLH sed rate is pending Check ferritin level stat Depending on clinical course and results may need to discuss the case with patient's customer engagement representative 2. Acute elevation in troponin Differential include NSTEMI type 2, myocarditis or pericarditis in the setting of antecedent respiratory illness and significant tachycardia She clearly has some conduction abnormalities on her EKG Patient is asymptomatic, no chest pain or significant shortness of breath Repeat EKG Trend troponin Urgent echocardiogram Cardiology consultation Start aspirin Start metoprolol She was started on heparin overnight which we can maintain for now she does not currently complain of any acute pain right now and there are no rubs on exam I don't find any compelling evidence of clinically 3. Rheumatoid arthritis Continue to hold methotrexate 4. Hypothyroidism Continue levothyroxine Her TSH is in the lower side of desirable, FT4 pending
[2019-07-16] MEDS ORDERED: METOPROLOL TARTRATE 25 MG TAB PO SCH (09:00)
[2019-07-16] MEDS ORDERED: AZITHROMYCIN 500 MG in SODIUM CHLORIDE 0.9% 250 ML IVPB SCH (09:00)
[2019-07-16] MEDS ORDERED: LACTATED RINGERS 1,000 ML IV SCH (09:45)
[2019-07-16] MEDS: ASPIRIN 81 MG PO SCH (10:16)
[2019-07-16] MEDS: OSELTAMIVIR 75 MG CAP PO SCH (10:16)
[2019-07-16] MEDS: ASCORBIC ACID 500 MG TAB PO SCH (10:16)
[2019-07-16] MEDS: OXYMETAZOLINE 0.05% NASL SPRAY 1 SPRAY BOTTLE NASAL SCH ×2 (10:16→21:49)
[2019-07-16] MEDS: METOPROLOL TARTRATE 12.5 MG TAB PO SCH ×3 (10:16→21:29)
[2019-07-16 11:50] LABS: T4, Free (Free Thyroxine) 2.36 ng/dL (0.78-2.19)
--- NOTE | 2019-07-16 14:06 | P.CRDCN ---
<Medina Jeffries - Last Filed: 07/16/19 14:03> History of Present Illness History of present illness: This is Medina Jeffries PA-C dictating a consult on this patient The patient was interviewed and examined by me as well as by Dr. Stephen Case discussed with Dr. Stephen and he agrees with the plan of care HPI Patient is an 83-year-old female with a past medical history significant for rheumatoid arthritis, hypothyroidism, dyslipidemia, hypertension who presented with altered mental status. The patient is a somewhat poor historian and most of her history was obtained from the chart. She was brought in by her brother and her neighbor. She had been having a sore throat body aches and generalized pain all over. She complained of pain in her neck, shoulders, legs and upper back. Denies any chest pain. She apparently also had some hallucinations. Upon presentation to the emergency department her temperature was 99.9F, pulse is 82, respirations 18, blood pressure 143/70, oxygen saturations 98% on room air. Brain CT showed no acute intracranial hemorrhage, mild diffuse age-related cerebral atrophy and moderate chronic small vessel ischemic change. EKG showed sinus tachycardia, right bundle branch block and left anterior fascicular block. Chest x-ray showed no focal consolidation. Labs are significant for WBC 18.2 and elevated liver enzymes. Initial troponin is negative however second troponin was 0.544 and the third troponin was 3.97. Overnight she did spike a fever and her pulse went up to the 130s. CT of the chest, abdomen and pelvis showed some patchy nodular infiltrates in the right posterior lung base. She has been started on antibiotics. Patient seen and examined resting in bed. Continues to complain of body aches. Denies any chest pain. ROS: Positive for fevers and chills Positive for cough no nausea, vomiting or diarrhea, no hematuria, dysuria, Positive for body aches no strokes or seizures, no skin lesions. EXAMINATION: Patient is afebrile, pulse 105, respirations 20, blood pressure 133/66, oxygen saturation 98% on 2 L nasal cannula Patient seen and examined resting in bed, does not appear to be in any acute distress Lungs are rhonchorous bilaterally Heart is regular, tachycardic, S1 and S2 heard, no audible murmurs or friction rubs Arms and legs are diffusely tender to palpation REVIEW OF LABS, ECG & MEDICAL DATA WBC 17.9, hemoglobin 11.8, platelets 205, ESR 96, potassium 2.9, BUN 24, creatinine 0.83 AST 143, ALT 90, alkaline phosphatase 138, TSH suppressed Troponin is 3.97, 0.544, 0.026 Influenza negative IMPRESSION / ASSESSMENT: Body aches, fevers, altered mental status secondary to sepsis possibly due to pneumonia or influenza, has been started on antibiotics and Tamiflu Abnormal troponin, trending up in the setting of sepsis, tachycardia, likely type II NSTEMI secondary to demand ischemia vs myocarditis, presentation not consistent with ACS, patient remains chest pain-free Hypertension Dyslipidemia Hypothyroidism, TSH suppressed Rheumatoid arthritis PLAN: Echocardiogram has been performed, awaiting results Repeat EKG may stop heparin Management of suppressed TSH by primary care Management of sepsis such as per primary care team Will send viral titers to look for supportive evidence of myocarditis Past Medical History Past Medical History: Hyperlipidemia, Hypertension Additional Past Medical History / Comment(s): basal cell CA-forhead_ History of Any Multi-Drug Resistant Organisms: None Reported Additional Past Surgical History / Comment(s): breast biopsy Past Anesthesia/Blood Transfusion Reactions: No Reported Reaction Past Psychological History: No Psychological Hx Reported Smoking Status: Former smoker Past Alcohol Use History: None Reported Past Drug Use History: None Reported - Past Family History Brother(s) Family Medical History: Diabetes Mellitus Mother Family Medical History: Coronary Artery Disease (CAD) Father Family Medical History: CVA/TIA Medications and Allergies Home Medications Medication Instructions Recorded Confirmed Type Calcium Carbonate/Vitamin D3 1 cap PO DAILY 07/15/19 07/15/19 History [Calcium 600-Vit D3 500 Softgel] Cyanocobalamin [Vitamin B-12 1,000 mcg SQ QMONTH 07/15/19 07/15/19 History Injection] Fish Oil/Dha/Epa [Fish Oil 1,200 2 cap PO DAILY 07/15/19 07/15/19 History mg Fish Oil] Folic Acid 5 mg PO DAILY 07/15/19 07/15/19 History Glucosam/Guy-Msm1/C/Zion/Bosw 2 tab PO DAILY 07/15/19 07/15/19 History [Glucosamine-Chondroitin Tablet] Levothyroxine Sodium [Synthroid] 88 mcg PO DAILY 07/15/19 07/15/19 History Melatonin 5 mg PO HS 07/15/19 07/15/19 History Methotrexate Sodium [Methotrexate] 15 mg PO WE 07/15/19 07/15/19 History Multivitamins, Thera [Multivitamin 1 tab PO DAILY 07/15/19 07/15/19 History (formulary)] Potassium Chloride [Klor-Con 20] 20 meq PO DAILY 07/15/19 07/15/19 History Simvastatin 10 mg PO HS 07/15/19 07/15/19 History Thiamine HCl [Vitamin B-1] 100 mg PO DAILY 07/15/19 07/15/19 History Triamterene/Hydrochlorothiazid 1 tab PO DAILY 07/15/19 07/15/19 History [Triamterene-Hctz 37.5-25 mg Tb] Allergies Allergy/AdvReac Type Severity Reaction Status Date / Time celecoxib [From Celebrex] Allergy Rash/Hives Verified 07/15/19 17:34 infliximab [From Remicade] Allergy Rash/Hives Verified 07/15/19 17:34 Physical Exam Vitals: Vital Signs Temp Pulse Pulse Resp BP BP BP 07/16/19 09:18 98.0 F 105 H 20 133/66 07/16/19 04:00 98.0 F 111 H 18 123/65 07/16/19 00:45 99.7 F H 122 H 20 147/82 07/16/19 00:35 130 H 24 07/16/19 00:25 128 H 24 07/16/19 00:10 102.2 F H 140 H 24 134/72 07/15/19 23:55 30 H 07/15/19 23:50 100.4 F H 130 H 30 H 168/72 07/15/19 21:30 98.8 F 07/15/19 19:48 97.6 F 95 24 142/73 07/15/19 19:02 98.9 F 07/15/19 16:48 90 18 147/71 07/15/19 14:30 111 H 14 150/83 07/15/19 14:10 114 H 25 H 166/96 07/15/19 14:00 110 H 28 H 166/96 07/15/19 13:50 110 H 16 166/96 07/15/19 13:40 112 H 16 143/75 07/15/19 13:30 110 H 18 134/71 07/15/19 13:21 Pulse Ox 07/16/19 09:18 98 07/16/19 04:00 95 07/16/19 00:45 96 07/16/19 00:35 95 07/16/19 00:25 100 07/16/19 00:10 90 L 07/15/19 23:55 80 L 07/15/19 23:50 70 L 07/15/19 21:30 07/15/19 19:48 99 07/15/19 19:02 07/15/19 16:48 98 07/15/19 14:30 95 07/15/19 14:10 96 07/15/19 14:00 97 07/15/19 13:50 98 07/15/19 13:40 97 07/15/19 13:30 96 07/15/19 13:21 81 L Intake and Output 07/15/19 07/16/19 07/16/19 22:59 06:59 14:59 Intake Total 1050 Output Total 700 1 Balance 350 -1 Intake: Intake, IV Titration 1050 Amount Cefepime 2 gm In Sodium 200 Chloride 0.9% 100 ml @ 200 mls/hr IVPB Q8H [facility] Rx#:[id number] Potassium Chloride 10 meq 200 In Water For Injection 1 100ml.bag @ 100 mls/hr IVPB Q1H [facility] Rx#: [id number] Sodium Chloride 0.9% 1, 400 000 ml @ 100 mls/hr IV . Q10H [facility] Rx#:[id number] Vancomycin 1,000 mg In 250 Sodium Chloride 0.9% 250 ml @ 125 mls/hr IVPB Q24H [facility] Rx#:[id number] Output: Urine 700 Stool 1 Other: Voiding Method Bedside Commode # Voids 1 1 # Bowel Movements 1 Weight 65.771 kg Results 07/16/19 06:00 07/16/19 06:00 Cardiac Enzymes 07/15/19 07/15/19 07/16/19 Range/Units 13:28 13:28 00:45 AST 125 H (14-36) U/L Troponin I 0.026 0.544 H* (0.000-0.034) ng/mL 07/16/19 07/16/19 Range/Units 06:00 06:00 AST 143 H (14-36) U/L Troponin I 3.970 H* (0.000-0.034) ng/mL Coagulation 07/15/19 07/16/19 Range/Units 13:28 02:35 PT 10.5 11.0 (9.0-12.0) sec APTT 27.7 28.6 (22.0-30.0) sec CBC 07/15/19 07/16/19 07/16/19 Range/Units 13: 00:45 06:00 WBC 18.2 H 17.9 H 25.9 H (3.8-10.6) k/uL RBC 4.60 4.05 4.04 (3.80-5.40) m/uL Hgb 13.1 11.8 11.8 (11.4-16.0) gm/dL Hct 40.4 36.4 36.6 (34.0-46.0) % Plt Count 244 205 218 (150-450) k/uL Comprehensive Metabolic Panel 07/15/19 07/16/19 07/16/19 Range/Units 13: 00:45 06:00 Sodium 137 134 L 136 L (137-145) mmol/L Potassium 3.4 L 2.9 L 3.7 (3.5-5.1) mmol/L Chloride 97 L 101 100 (98-107) mmol/L Carbon Dioxide 27 22 25 (22-30) mmol/L BUN 30 H 24 H 21 H (7-17) mg/dL Creatinine 1.05 H 0.83 0.82 (0.52-1.04) mg/dL Glucose 204 H 163 H 159 H (74-99) mg/dL Calcium 9.4 8.2 L 8.2 L (8.4-10.2) mg/dL AST 125 H 143 H (14-36) U/L ALT 77 H 90 H (4-34) U/L Alkaline Phosphatase 143 H 138 H (38-126) U/L Total Protein 7.1 6.3 (6.3-8.2) g/dL Albumin 4.0 3.2 L (3.5-5.0) g/dL Current Medications Generic Name Dose Route Start Last Admin Trade Name Freq PRN Reason Stop Dose Admin Acetaminophen 650 mg 07/15/19 16:26 07/15/19 23:44 Tylenol Tab PO 650 mg Q6HR PRN Administration Mild Pain or Fever > 100.5 Albuterol Sulfate 2.5 mg 07/16/19 08:58 Ventolin Nebulized INHALATION RT-Q1H PRN Shortness Of Breath Or Wheezing Ascorbic Acid 1,000 mg 07/15/19 17:15 07/16/19 10:16 Vitamin C PO 07/17/19 09:01 1,000 mg DAILY [facility] Administration Aspirin 81 mg 07/16/19 09:00 07/16/19 10:16 Aspirin PO 81 mg DAILY [facility] Administration Azithromycin 500 mg 07/17/19 09:00 Zithromax PO DAILY [facility] Ceftriaxone Sodium 1 gm/ 50 mls @ 100 mls/hr 07/16/19 11:00 07/16/19 12:03 Sodium Chloride IVPB 07/18/19 09:29 100 mls/hr Q24HR [facility] Administration Lactated Ringer's 1,000 mls @ 50 mls/hr 07/16/19 09:45 07/16/19 10:16 Lactated Ringers IV 07/16/19 21:46 50 mls/hr .Q20H [facility] Administration Iopamidol 30 ml 07/16/19 00:37 Isovue-300 (For Oral Use) PO 07/17/19 00:[address] Scan Metoprolol Tartrate 12.5 mg 07/16/19 18:00 07/16/19 10:16 Lopressor PO 12.5 mg QID [facility] Administration Miscellaneous Information 1 each 07/16/19 00:37 Rx Info: Iv Contrast Was Given MISCELLANE 07/18/19 00:39 DAILY PRN Per Protocol Naloxone HCl 0.2 mg 07/15/19 16:26 Narcan IV Q2M PRN Opioid Reversal Oseltamivir Phosphate 75 mg 07/16/19 09:00 07/16/19 10:16 Tamiflu PO 07/21/19 09:01 75 mg DAILY [facility] Administration Oxymetazoline HCl 2 spray 07/15/19 21:00 07/16/19 10:16 Afrin 0.05% Nasal [place] NASAL Not Given BID [facility] Intake and Output 07/15/19 07/16/19 07/16/19 22:59 06:59 14:59 Intake Total 1050 Output Total 700 1 Balance 350 -1 Intake: Intake, IV Titration 1050 Amount Cefepime 2 gm In Sodium 200 Chloride 0.9% 100 ml @ 200 mls/hr IVPB Q8H [facility] Rx#:[id number] Potassium Chloride 10 meq 200 In Water For Injection 1 100ml.bag @ 100 mls/hr IVPB Q1H [facility] Rx#: [id number] Sodium Chloride 0.9% 1, 400 000 ml @ 100 mls/hr IV . Q10H [facility] Rx#:[id number] Vancomycin 1,000 mg In 250 Sodium Chloride 0.9% 250 ml @ 125 mls/hr IVPB Q24H [facility] Rx#:[id number] Output: Urine 700 Stool 1 Other: Voiding Method Bedside Commode # Voids 1 1 # Bowel Movements 1 Weight 65.771 kg 07/16/19 06:00 07/16/19 06:00 <Rahul Stephen - Last Filed: 07/16/19 14:19> History of Present Illness History of present illness: Dr. Stephen's update Discussed with Medina Jeffries Elderly female presenting with sore throat and body aches all over no angina and cardiac ALLERGY was called because of abnormal ECG with right bundle branch block left anterior fascicular block and a rising troponin pattern with a peak a t around 3.9 Clearly symptoms consistent with an inflammatory state with likely sepsis with elevated white count and elevated ESR of 96 She has severe muscle aches which are quite tender muscles 2-D echo has been ordered to look for any global hypokinesis that could point towards the diagnosis of myocarditis However this most likely represents either a type II [place] in the setting of sepsis or an inflammatory state versus myocarditis Viral titers have been ordered Will watch on telemetry for any arrhythmias Management of inflammatory state and sepsis per internal medicine Physical Exam Vitals: Vital Signs Temp Pulse Pulse Resp BP BP BP 07/16/19 12:00 98.3 F 106 H 20 131/74 07/16/19 09:18 98.0 F 105 H 20 133/66 07/16/19 04:00 98.0 F 111 H 18 123/65 07/16/19 00:45 99.7 F H 122 H 20 147/82 07/16/19 00:35 130 H 24 07/16/19 00:25 128 H 24 07/16/19 00:10 102.2 F H 140 H 24 134/72 07/15/19 23:55 30 H 07/15/19 23:50 100.4 F H 130 H 30 H 168/72 07/15/19 21:30 98.8 F 07/15/19 19:48 97.6 F 95 24 142/73 07/15/19 19:02 98.9 F 07/15/19 16:48 90 18 147/71 07/15/19 14:30 111 H 14 150/83 Pulse Ox 07/16/19 12:00 97 07/16/19 09:18 98 07/16/19 04:00 95 07/16/19 00:45 96 07/16/19 00:35 95 07/16/19 00:25 100 07/16/19 00:10 90 L 07/15/19 23:55 80 L 07/15/19 23:50 70 L 07/15/19 21:30 07/15/19 19:48 99 07/15/19 19:02 07/15/19 16:48 98 07/15/19 14:30 95 Intake and Output 07/15/19 07/16/19 07/16/19 22:59 06:59 14:59 Intake Total 1050 Output Total 700 1 Balance 350 -1 Intake: Intake, IV Titration 1050 Amount Cefepime 2 gm In Sodium 200 Chloride 0.9% 100 ml @ 200 mls/hr IVPB Q8H [facility] Rx#:[id number] Potassium Chloride 10 meq 200 In Water For Injection 1 100ml.bag @ 100 mls/hr IVPB Q1H [facility] Rx#: [id number] Sodium Chloride 0.9% 1, 400 000 ml @ 100 mls/hr IV . Q10H [facility] Rx#:[id number] Vancomycin 1,000 mg In 250 Sodium Chloride 0.9% 250 ml @ 125 mls/hr IVPB Q24H [facility] Rx#:[id number] Output: Urine 700 Stool 1 Other: Voiding Method Bedside Commode # Voids 1 1 # Bowel Movements 1 Weight 65.771 kg Results 07/16/19 06:00 07/16/19 06:00 Cardiac Enzymes 07/15/19 07/15/19 07/16/19 Range/Units 13:28 13:28 00:45 AST 125 H (14-36) U/L Troponin I 0.026 0.544 H* (0.000-0.034) ng/mL 07/16/19 07/16/19 07/16/19 Range/Units 06:00 06:00 12:36 AST 143 H (14-36) U/L Troponin I 3.970 H* 3.340 H* (0.000-0.034) ng/mL Coagulation 07/16/19 Range/Units 02:35 PT 11.0 (9.0-12.0) sec APTT 28.6 (22.0-30.0) sec CBC 07/16/19 07/16/19 Range/Units 00:45 06:00 WBC 17.9 H 25.9 H (3.8-10.6) k/uL RBC 4.05 4.04 (3.80-5.40) m/uL Hgb 11.8 11.8 (11.4-16.0) gm/dL Hct 36.4 36.6 (34.0-46.0) % Plt Count 205 218 (150-450) k/uL Comprehensive Metabolic Panel 07/15/19 07/16/19 07/16/19 Range/Units 13:28 00:45 06:00 Sodium 137 134 L 136 L (137-145) mmol/L Potassium 3.4 L 2.9 L 3.7 (3.5-5.1) mmol/L Chloride 97 L 101 100 (98-107) mmol/L Carbon Dioxide 27 22 25 (22-30) mmol/L BUN 30 H 24 H 21 H (7-17) mg/dL Creatinine 1.05 H 0.83 0.82 (0.52-1.04) mg/dL Glucose 204 H 163 H 159 H (74-99) mg/dL Calcium 9.4 8.2 L 8.2 L (8.4-10.2) mg/dL AST 125 H 143 H (14-36) U/L ALT 77 H 90 H (4-34) U/L Alkaline Phosphatase 143 H 138 H (38-126) U/L Total Protein 7.1 6.3 (6.3-8.2) g/dL Albumin 4.0 3.2 L (3.5-5.0) g/dL Current Medications Generic Name Dose Route Start Last Admin Trade Name Freq PRN Reason Stop Dose Admin Acetaminophen 650 mg 07/15/19 16:26 07/15/19 23:44 Tylenol Tab PO 650 mg Q6HR PRN Administration Mild Pain or Fever > 100.5 Albuterol Sulfate 2.5 mg 07/16/19 08:58 Ventolin Nebulized INHALATION RT-Q1H PRN Shortness Of Breath Or Wheezing Ascorbic Acid 1,000 mg 07/15/19 17:15 07/16/19 10:16 Vitamin C PO 07/17/19 09:01 1,000 mg DAILY [facility] Administration Aspirin 81 mg 07/16/19 09:00 07/16/19 10:16 Aspirin PO 81 mg DAILY [facility] Administration Azithromycin 500 mg 07/17/19 09:00 Zithromax PO DAILY [facility] Ceftriaxone Sodium 1 gm/ 50 mls @ 100 mls/hr 07/16/19 11:00 07/16/19 12:03 Sodium Chloride IVPB 07/18/19 09:29 100 mls/hr Q24HR [facility] Administration Lactated Ringer's 1,000 mls @ 50 mls/hr 07/16/19 09:45 07/16/19 10:16 Lactated Ringers IV 07/16/19 21:46 50 mls/hr .Q20H [facility] Administration Iopamidol 30 ml 07/16/19 00:37 Isovue-300 (For Oral Use) PO 07/17/19 00:[address] Scan Metoprolol Tartrate 12.5 mg 07/16/19 18:00 07/16/19 10:16 Lopressor PO 12.5 mg QID [facility] Administration Miscellaneous Information 1 each 07/16/19 00:37 Rx Info: Iv Contrast Was Given MISCELLANE 07/18/19 00:39 DAILY PRN Per Protocol Naloxone HCl 0.2 mg 07/15/19 16:26 Narcan IV Q2M PRN Opioid Reversal Oseltamivir Phosphate 75 mg 07/16/19 09:00 07/16/19 10:16 Tamiflu PO 07/21/19 09:01 75 mg DAILY [facility] Administration Oxymetazoline HCl 2 spray 07/15/19 21:00 07/16/19 10:16 Afrin 0.05% Nasal [place] NASAL Not Given BID [facility] Intake and Output 07/15/19 07/16/19 07/16/19 22:59 06:59 14:59 Intake Total 1050 Output Total 700 1 Balance 350 -1 Intake: Intake, IV Titration 1050 Amount Cefepime 2 gm In Sodium 200 Chloride 0.9% 100 ml @ 200 mls/hr IVPB Q8H [facility] Rx#:[id number] Potassium Chloride 10 meq 200 In Water For Injection 1 100ml.bag @ 100 mls/hr IVPB Q1H [facility] Rx#: [id number] Sodium Chloride 0.9% 1, 400 000 ml @ 100 mls/hr IV . Q10H [facility] Rx#:[id number] Vancomycin 1,000 mg In 250 Sodium Chloride 0.9% 250 ml @ 125 mls/hr IVPB Q24H [facility] Rx#:[id number] Output: Urine 700 Stool 1 Other: Voiding Method Bedside Commode # Voids 1 1 # Bowel Movements 1 Weight 65.771 kg 07/16/19 06:00 07/16/19 06:00
[2019-07-16] MEDS: ALBUTEROL NEBULIZED 2.5 MG/3 ML INHALATION PRN ×2 (14:47→17:41)
[2019-07-16] MEDS: ACETAMINOPHEN TAB 325 MG TAB PO PRN (17:56)
[2019-07-16] MEDS ORDERED: BUMETANIDE 0.25 MG/ML 4 ML VIAL IVP STA (18:04)
[2019-07-16 18:15] LABS: Glucose,Whole Blood 161 mg/dL (75-99)
--- NOTE | 2019-07-16 19:01 | P.PN ---
Progress Note - Text Pt had episode of SOB after activity. Oxygen requirement remained stable. VS stable. No active wheezing on exam, bibasilar crackles as before. Bladder scan 400 cc. will straight cath, monitor PVR, stop IVF, Bumex 1 mg x 1, CXR, r/o fluid overload, ARDS, bronchospasm.
[2019-07-16 19:34] LABS: Hemoglobin A1C 5.5 % (4.0-6.0)
--- NOTE | 2019-07-16 19:36 | XR ---
EXAMINATION TYPE: XR chest 1V DATE OF EXAM: 07/16/2019 COMPARISON: Today HISTORY: Short of breath TECHNIQUE: FINDINGS: There is some pulmonary interstitial edema. There is poor inspiration. There is some infilt rate and atelectasis right lower lobe. There are chest leads. IMPRESSION: There is increased pulmonary edema compared to exam earlier today and consistent with hea rt failure.
--- NOTE | 2019-07-16 20:00 | ECHOF ---
Referral Reason:elevetaed troponin MEASUREMENTS -------- HEIGHT: 149.9 cm WEIGHT: 65.8 kg BP: 123/65 RVIDd: 2.8 cm (< 3.3) IVSd: 1.1 cm (0.6 - 1.1) LVIDd: 4.3 cm (3.9 - 5.3) LVPWd: 1.0 cm (0.6 - 1.1) IVSs: 1.5 cm LVIDs: 2.8 cm LVPWs: 1.7 cm LA Diam: 3.5 cm (2.7 - 3.8) Ao Diam: 3.2 cm (2.0 - 3.7) AV Cusp: 1.9 cm (1.5 - 2.6) MV EXCURSION: 9.371 mm (> 18.000) MV EF SLOPE: 36 mm/s (70 - 150) EPSS: 0.7 cm MV E Jose Juan: 1.39 m/s MV DecT: 122 ms MV A Jose Juan: 1.76 m/s MV E/A Ratio: 0.79 RAP: 15.00 mmHg RVSP: 48.79 mmHg FINDINGS -------- Atrial fibrillation. This was a technically difficult study with suboptimal views. The left ventricular size is normal. Left ventricular wall thickness is normal. Overall left vent ricular systolic function is mild-moderately impaired with, an EF between 40 - 45 %. The right ventricle is normal in size. The left atrial size is normal. The right atrium is normal in size. 3 ml of Lumason was utilized for enhancement of images. Interatrial and interventricular septum intact. There is mild aortic valve sclerosis. The mitral valve leaflets are mildly thickened. Moderate mitral annular calcification present. Mo derate mitral regurgitation is present. The peak and mean MV gradients are 17.97mmHg 7.44mmHg as m easured by doppler. Vmvy-fv-cnatvzae mitral stenosis. Lkep-bo-bjhsiogk tricuspid regurgitation present. There is moderate pulmonary hypertension. The r ight ventricular systolic pressure, as measured by Doppler, is 48.79mmHg. Trace/mild (physiologic) pulmonic regurgitation. The aortic root size is normal. Normal inferior vena cava with less than 50% inspiratory collapse consistent with estimated right atr ial pressure of 15 mmHg. There is no pericardial effusion. CONCLUSIONS -------- 1. Atrial fibrillation. 2. This was a technically difficult study with suboptimal views. 3. The left ventricular size is normal. 4. Left ventricular wall thickness is normal. 5. The right ventricle is normal in size. 6. The left atrial size is normal. 7. The right atrium is normal in size. 8. 3 ml of Lumason was utilized for enhancement of images. 9. Interatrial and interventricular septum intact. 10. There is mild aortic valve sclerosis. 11. The mitral valve leaflets are mildly thickened. 12. Moderate mitral annular calcification present. 13. Moderate mitral regurgitation is present. 14. The peak and mean MV gradients are 17.97mmHg 7.44mmHg as measured by doppler. 15. Pfju-gr-uniitrhi mitral stenosis. 16. Zsye-ih-fdxyflpm tricuspid regurgitation present. 17. There is moderate pulmonary hypertension. 18. The right ventricular systolic pressure, as measured by Doppler, is 48.79mmHg. 19. Trace/mild (physiologic) pulmonic regurgitation. 20. The aortic root size is normal. 21. Normal inferior vena cava with less than 50% inspiratory collapse consistent with estimated right atrial pressure of 15 mmHg. 22. There is no pericardial effusion. FABRICATOR SPECIAL ITEMS: Nereida Andrews RDCS
[2019-07-16] MEDS: CEFEPIME 2 GM in SODIUM CHLORIDE 0.9% 100 ML IVPB SCH (21:30)
[2019-07-16] MEDS: MELATONIN 5 MG TABLET PO PRN (21:33)
--- NOTE | 2019-07-16 22:59 | CONS ---
CONSULTATION DATE OF SERVICE: 07/16/2019 REASON FOR CONSULTATION: Sepsis. HISTORY OF PRESENT ILLNESS: The patient is an 83-year-old, female. She presented to the ER at [facility] yesterday with chief complaints of fever and chills and episodes of confusion. The patient also complaining of sore throat and generalized body aches. The patient apparently was noted to be hallucinating for the family member. The patient denies any headache. No nausea, no vomiting. No abdominal pain or diarrhea. The patient complaining of increased shortness of breath. She also has a cough which has been mild to moderate intensity, but not bringing up any sputum. No hemoptysis. With these symptoms, the patient was evaluated by the ER physician. On arrival to the ER, the patient did have a low-grade fever of 99.8, she subsequently did spike a fever of 102.2. The patient also was tachycardic. The patient did have a elevated white count 17.9. Troponin was elevated. Influenza PCR was negative. UA was negative. The patient did have a cough but ultrasound did show suboptimal evaluation due to overlying bowel gas catheter is partially obscured, but no evidence for listhesis. The patient also have a CT of the chest, abdominal and pelvis completed which today shows mild early infiltrate right lower lobe, could be cause of concern for the fever. Gallbladder was normal and no evidence of any colitis. The patient has been treated with Rocephin Zithromax, and dose of vancomycin. Blood cultures were drawn, which came back positive with gram-negative bacilli. Infectious disease was consulted for further recommendations regarding antibiotic therapy. REVIEW OF SYSTEMS: Positive points have been mentioned in HPI. Rest of systems are negative. PAST MEDICAL HISTORY: Diabetes mellitus, hypertension, hyperlipidemia, basal cell carcinoma. PAST SURGICAL HISTORY: Breast biopsy. SOCIAL HISTORY: History of smoking, drinking and drug use. FAMILY HISTORY: No pertinent findings noticed. ALLERGIES: CELEBREX INFLEX EB. MEDICATIONS: The patient is currently on Tylenol, Ventolin, aspirin, Rocephin 1 g daily, Lopressor, Narcan and Tamiflu. PHYSICAL EXAMINATION: On examination, her blood pressure is 125/75 with a pulse of 105. Temperature 96% with 2 L nasal cannula. General description is an elderly female lying in bed in no distress. No tachypnea or accessory muscles of respiration use. HEENT: Examination shows no pallor or scleral icterus. Oral mucosa is dry. No pharyngeal erythema or thrush. NECK: Trachea central. No thyromegaly. LUNGS: Unlabored breathing, decreased breath sounds in the bases. Normal S1, S2. Regular rate and rhythm. ABDOMEN: Soft, no tenderness. No guarding or rigidity. EXTREMITIES are no edema of the feet. SKIN: Examination: No rash or mass palpable, edema of the feet. Patient is awake, alert, oriented x2. Mood and affect normal. LABS: Hemoglobin 9.8, white count 5.9, BUN of 21, creatinine 0.82, elevated liver enzymes, mildly elevated. Urine is negative. DIAGNOSTIC IMPRESSION AND PLAN: Patient admitted to the hospital with sepsis in this patient who did have a fever, tachycardia, elevated white count with evidence of gram-negative bacteremia and respiratory symptoms with evidence of inflammatory changes on the CT slightly suspicious for pneumonia as there is no evidence of any inflammatory changes in the abdomen and UA has been negative. The patient had no abdominal symptoms. PLAN: 1. Discontinue Rocephin. 2. Will start the patient on cefepime 2 g q.12 hours. 3. We will follow up on clinical condition and culture to further adjust medication if needed. Thank you for referring this patient for consultation. I will follow this patient along with you. MMODL / IJN: [id number] /
[2019-07-16] MEDS: HEPARIN SODIUM,PORCINE 5,000 UNIT/ML 1 ML VIAL SQ SCH (23:10)
[2019-07-17] MEDS ORDERED: VANCOMYCIN 1,000 MG in SODIUM CHLORIDE 0.9% 250 ML IVPB SCH (06:00)
[2019-07-17 06:45] LABS: HCT 36.3 % (34.0-46.0); HGB 11.7 gm/dL (11.4-16.0); MCH 28.9 pg (25.0-35.0); MCHC 32.3 g/dL (31.0-37.0); MCV 89.4 fL (80.0-100.0); Mean Platelet Volume 7.2; Platelet Count 245 k/uL (150-450); RBC 4.06 m/uL (3.80-5.40); RDW 14.2 % (11.5-15.5); WBC 18.7 k/uL (3.8-10.6)
[2019-07-17 06:57] LABS: Calcium 8.2 mg/dL (8.4-10.2)
[2019-07-17] MEDS: ASPIRIN 81 MG PO SCH (08:03)
[2019-07-17] MEDS: OSELTAMIVIR 75 MG CAP PO SCH (08:03)
[2019-07-17] MEDS: HEPARIN SODIUM,PORCINE 5,000 UNIT/ML 1 ML VIAL SQ SCH ×3 (08:03→23:25)
[2019-07-17] MEDS: METOPROLOL TARTRATE 12.5 MG TAB PO SCH ×4 (08:04→21:00)
[2019-07-17] MEDS: CEFEPIME 2 GM in SODIUM CHLORIDE 0.9% 100 ML IVPB SCH (08:04)
[2019-07-17] MEDS: ACETAMINOPHEN TAB 325 MG TAB PO PRN ×2 (08:11→19:35)
[2019-07-17] MEDS: OXYMETAZOLINE 0.05% NASL SPRAY 1 SPRAY BOTTLE NASAL SCH (08:12)
[2019-07-17] MEDS ORDERED: POTASSIUM CHLORIDE ER 20 MEQ TAB.ER PO STA (08:23)
[2019-07-17] MEDS ORDERED: AZITHROMYCIN 500 MG TAB PO SCH (09:00)
--- NOTE | 2019-07-17 10:50 | P.PN ---
Subjective Summary: 83-year-old female with history of rheumatoid arthritis on methotrexate and hypothyroidism presented with septic picture after protracted URI symptoms. She was diagnosed with right lower lobe pneumonia and she had Haemophilus influenza bacteremia. Hospital course was complicated by significant tachycardia fever or elevated troponin and fluid overload from IV fluid resuscitation for sepsis protocol. Interval history: Today patient appears clinically more stable and been improving. Her shortness of breath is significantly improved after Bumex. She remains afebrile for 24 hours with stable blood pressure and tachycardia has improved. Troponin plateaued out. Echo showed borderline EF. Possible atrial fibrillation detected on during echocardiogram Overall her appetite has been steadily improving and energy level and stamina improving as well. Objective - Vital Signs Vital signs: Vital Signs Temp 98.5 F 07/17/19 04:00 Pulse 94 07/17/19 04:00 Resp 18 07/17/19 08:00 BP 115/58 07/17/19 04:00 Pulse Ox 95 07/17/19 04:00 Intake & Output 07/16/19 07/17/19 07/17/19 18:59 06:59 18:59 Intake Total 180 Output Total 401 200 1 Balance -221 -200 -1 Weight 66.4 kg Intake: Oral 180 Output: Urine 400 200 Straight 400 Stool 1 1 Other: Voiding Method Bedside Commode Bedside Commode # Voids 1 1 # Bowel Movements 0 1 - Exam Vital Signs: I have reviewed the vital signs. GENERAL: Well-nourished, Well-developed , no apparent distress, cooperative Eyes: PERRL, extraoculry movements intact, clear conjunctiva Head: : Atraumatic external nose and ears, oropharyngeal mucosa is moist without lesions or exudates Neck: Symmetric, trachea midline, No thyromegaly, no masses or neck vain pulsation, no neck rigidity CVS: Tachycardic, regular, no significant murmurs, no rubs RESP: Unlabored respiratory effort. Breath sounds are present bilaterally and her course, she has been basilar inspiratory crackles, he wheezes expiratory Abdomen: Bowel sounds present in all 4 quadrants, Soft to palpation, Nontender/Nondistended, No hepatosplenomegaly, no hernias or masses, no CVA tnderness Musculoskeletal: Extremities w/o deformity, No cyanosis or clubbing, no joint swelling Skin: Warm, Dry. No rashes or lesions Neuro: geriatric nurse II-XII grossly intact, motor strenght 5/5 i upper and lower extremities, no clonus, patellar DTRs 2+ and sympetrical Psych: Awake, Alert, & Oriented (AAO) x3 Appropriate mood and affect - Labs CBC & Chem 7: 07/17/19 06:08 07/17/19 06:08 Labs: Abnormal Lab Results - Last 24 Hours (Table) 07/15/19 07/15/19 07/16/19 Range/Units 13:28 13:50 06:00 WBC (3.8-10.6) k/uL Potassium (3.5-5.1) mmol/L BUN (7-17) mg/dL Glucose (74-99) mg/dL POC Glucose (mg/dL) (75-99) mg/dL Calcium (8.4-10.2) mg/dL Ferritin (10.0-291.0) ng/mL Troponin I (0.000-0.034) ng/mL Procalcitonin 1.70 H (0.02-0.09) ng/mL Free T4 2.36 H (0.78-2.19) ng/dL U Random Total Protein 86 H (<12) mg/dL 07/16/19 07/16/19 07/16/19 Range/Units 06:00 12:36 18:03 WBC (3.8-10.6) k/uL Potassium (3.5-5.1) mmol/L BUN (7-17) mg/dL Glucose (74-99) mg/dL POC Glucose (mg/dL) 161 H (75-99) mg/dL Calcium (8.4-10.2) mg/dL Ferritin 1688.9 H (10.0-291.0) ng/mL Troponin I 3.340 H* (0.000-0.034) ng/mL Procalcitonin (0.02-0.09) ng/mL Free T4 (0.78-2.19) ng/dL U Random Total Protein (<12) mg/dL 07/17/19 07/17/19 Range/Units 06:08 06:08 WBC 18.7 H (3.8-10.6) k/uL Potassium 3.0 L (3.5-5.1) mmol/L BUN 20 H (7-17) mg/dL Glucose 114 H (74-99) mg/dL POC Glucose (mg/dL) (75-99) mg/dL Calcium 8.2 L (8.4-10.2) mg/dL Ferritin (10.0-291.0) ng/mL Troponin I (0.000-0.034) ng/mL Procalcitonin (0.02-0.09) ng/mL Free T4 (0.78-2.19) ng/dL U Random Total Protein (<12) mg/dL Microbiology - Last 24 Hours (Table) 07/15/19 13:28 Blood Culture Gram Stain - Preliminary Blood Blood Culture - Preliminary Haemophilus influenzae 07/15/19 13:28 Blood Culture - Final Blood Assessment and Plan Assessment: 1. Right lower lobe pneumonia due to Haemophilus influenza with bacteremia and sepsis Ceftriaxone day #3 Zithromax discontinued Empirically on Tamiflu day #2 Vital signs significantly improved and patient been afebrile. We have discontinue IV fluids. Encourage diet and physical activity Infectious disease following 2. Acute elevation in troponin Probably NSTEMI type 2 or myocarditis in the setting of antecedent respiratory illness and significant tachycardia and conduction abnormalities on EKG Currently asymptomatic Discussed with cardiology 3. Acute diastolic CHF exacerbation Fluid overload from IV fluids resuscitation Discontinue IV fluids Will diuresis for 3 days and then reevaluate Bumex day #2 4. Hypokalemia Magnesium is normal Continue replacement 5. Rheumatoid arthritis Continue to hold methotrexate 6. Hypothyroidism Continue levothyroxine Her TSH is in the lower side of desirable, FT4 pending No adjustments for now follow-up as an outpatient 7. Acute debility Patient has excellent functional status prior to admission We will order physical occupational therapy with a goal for patient to be discharged home, if continues this trajectory of recovery in couple days
[2019-07-17] MEDS ORDERED: POTASSIUM CHLORIDE ER 20 MEQ TAB.ER PO ONE (11:00)
[2019-07-17] MEDS ORDERED: BUMETANIDE 0.25 MG/ML 4 ML VIAL IVP ONE (11:00)
--- NOTE | 2019-07-17 16:51 | P.PN ---
Subjective This is Medina Jeffries PA-C dictating a progress note on this patient The patient was interviewed and examined by me as well as by Dr. Stephen Case discussed with Dr. Stephen and he agrees with the plan of care HPI/interval history Patient is an 83-year-old female with a past medical history significant for rheumatoid arthritis, hypothyroidism, dyslipidemia, hypertension who presented with altered mental status, fevers, and body aches. She was diagnosed with right lower lobe pneumonia and also found to have Haemophilus influenza bacte remia. She has been started on antibiotics. She was tachycardic and found to have abnormal troponin. Recent echocardiogram showed systolic function mild to moderately impaired, EF 40-45%. She was initially given fluids per sepsis protocol but became fluid overloaded and is now on diuretics. Patient seen and examined in bed. States she is feeling better. But continues to have body aches. Remaining short of breath and is still coughing. Denies chest pain. EXAMINATION Patient is afebrile, pulse in the 90s, respirations 18, blood pressure 123/73, oxygen saturation 98% on 2 L nasal cannula Patient seen and examined resting in bed, does not appear to be in any acute distress Lungs are diminished bilaterally with few scattered crackles Heart is regular, no audible murmurs No lower extremity edema REVIEW OF LABS, ECG WBC 18.7, hemoglobin 11.7, platelets 245, potassium 3.0, BUN 20, creatinine 0.74 Echocardiogram shows EF 40-45%, moderate MR, mild to moderate MS, moderate pulmonary hypertension IMPRESSION / ASSESSMENT: Body aches, fevers, altered mental status secondary to sepsis and pneumonia, blood cultures positive for Haemophilus influenza, on antibiotics Abnormal troponin in the setting of sepsis, tachycardia, likely type II NSTEMI secondary to demand ischemia vs myocarditis, presentation not consistent with ACS, patient remains chest pain-free Recent echocardiogram showing systolic function mild to moderately impaired with EF 40-45%, possible myocarditis, viral titers pending Acute CHF exacerbation secondary to systolic dysfunction due to fluid resuscitation, improving with IV diuresis Hypertension Dyslipidemia Hypothyroidism, TSH suppressed Rheumatoid arthritis PLAN: Continue IV diuretics Continue low-dose beta blockers Consider further workup of cardiomyopathy once her infection improves Objective - Vital Signs Vital signs: Vital Signs Temp 97.6 F 07/17/19 15:30 Pulse 97 07/17/19 15:30 Resp 18 07/17/19 15:30 BP 123/73 07/17/19 15:30 Pulse Ox 98 07/17/19 15:30 Intake & Output 07/16/19 07/17/19 07/17/19 18:59 06:59 18:59 Intake Total 180 750 Output Total 401 200 801 Balance -221 -200 -51 Weight 66.4 kg Intake: Intake, IV Titration 150 Amount Cefepime 2 gm In Sodium 100 Chloride 0.9% 100 ml @ 200 mls/hr IVPB Q12HR [facility] Rx#:[id number] cefTRIAXone 1 gm In 50 Sodium Chloride 0.9% 50 ml @ 100 mls/hr IVPB Q24HR [facility] Rx#:[id number] Oral 180 600 Output: Urine 400 200 800 Straight 400 Stool 1 1 Other: Voiding Method Bedside Commode Toilet # Voids 1 2 # Bowel Movements 0 2 - Labs CBC & Chem 7: 07/17/19 06:08 07/17/19 06:08 Labs: Abnormal Lab Results - Last 24 Hours (Table) 07/15/19 07/15/19 07/16/19 Range/Units 13:28 13:50 06:00 WBC (3.8-10.6) k/uL Potassium (3.5-5.1) mmol/L BUN (7-17) mg/dL Glucose (74-99) mg/dL POC Glucose (mg/dL) (75-99) mg/dL Calcium (8.4-10.2) mg/dL Ferritin 1688.9 H (10.0-291.0) ng/mL Procalcitonin 1.70 H (0.02-0.09) ng/mL U Random Total Protein 86 H (<12) mg/dL 07/16/19 07/17/19 07/17/19 Range/Units 18:03 06:08 06:08 WBC 18.7 H (3.8-10.6) k/uL Potassium 3.0 L (3.5-5.1) mmol/L BUN 20 H (7-17) mg/dL Glucose 114 H (74-99) mg/dL POC Glucose (mg/dL) 161 H (75-99) mg/dL Calcium 8.2 L (8.4-10.2) mg/dL Ferritin (10.0-291.0) ng/mL Procalcitonin (0.02-0.09) ng/mL U Random Total Protein (<12) mg/dL Microbiology - Last 24 Hours (Table) 07/15/19 13:28 Blood Culture Gram Stain - Preliminary Blood Blood Culture - Final Haemophilus influenzae 07/15/19 13:28 Blood Culture - Final Blood
--- NOTE | 2019-07-17 18:21 | PN ---
PROGRESS NOTE DATE OF SERVICE: 07/17/2019 REASON FOR FOLLOWUP: Haemophilus influenzae pneumonia with bacteremia. INTERVAL HISTORY: The patient is currently afebrile. The patient has been breathing slightly comfortably. The patient did have some cough but not bringing up any sputum. No nausea, no vomiting. No abdominal pain. No diarrhea. She remains slightly pleasantly confused. PHYSICAL EXAMINATION: Blood pressure 123/73 with a pulse of 97, temperature 97.6. She is 98% on 2 L nasal cannula. General description is an elderly female lying in bed in no distress. RESPIRATORY SYSTEM: Unlabored breathing with decreased intensity of breath sounds. No wheeze. HEART: S1, S2. Regular rate and rhythm. ABDOMEN: Soft. No tenderness. LABS: Hemoglobin is 11.7, white count 18.7. BUN of 20, creatinine 0.74. Blood culture with Haemophilus influenzae. DIAGNOSTIC IMPRESSION AND PLAN: Patient with Haemophilus influenzae bacteremia. Source is likely pneumonia. Antibiotic has been adjusted to Rocephin, which should be adjusted to 2 grams daily. Blood culture repeated to document clearance of bacteremia and monitor clinical course closely. MMODL / IJN: [id number] /
[2019-07-17] MEDS: POTASSIUM CHLORIDE ER 20 MEQ TAB.ER PO SCH ×2 (20:05→21:00)
[2019-07-18] MEDS ORDERED: Potassium Replacement Protocol 1 EACH MISC MISCELLANE PRN (03:00)
[2019-07-18] MEDS: MELATONIN 5 MG TABLET PO PRN (03:20)
[2019-07-18 08:05] LABS: HCT 35.9 % (34.0-46.0); HGB 11.4 gm/dL (11.4-16.0); MCH 28.8 pg (25.0-35.0); MCHC 31.9 g/dL (31.0-37.0); MCV 90.3 fL (80.0-100.0); Mean Platelet Volume 7.8; Platelet Count 278 k/uL (150-450); RBC 3.97 m/uL (3.80-5.40); RDW 14.2 % (11.5-15.5); WBC 14.6 k/uL (3.8-10.6)
[2019-07-18 08:19] LABS: Calcium 8.6 mg/dL (8.4-10.2)
[2019-07-18] MEDS: METOPROLOL TARTRATE 12.5 MG TAB PO SCH ×4 (08:31→20:48)
[2019-07-18] MEDS: HEPARIN SODIUM,PORCINE 5,000 UNIT/ML 1 ML VIAL SQ SCH ×3 (08:33→23:25)
[2019-07-18] MEDS: ASPIRIN 81 MG PO SCH (08:33)
[2019-07-18 10:22] LABS: Parvovirus B-19 IgG Antibodies 0.67 INDEX (<=0.90); Parvovirus B-19 IgM Antibodies 0.69 INDEX (<=0.90)
[2019-07-18] MEDS: OSELTAMIVIR 75 MG CAP PO SCH (10:22)
[2019-07-18] MEDS: SPIRONOLACTONE 25 MG TAB PO SCH (13:17)
[2019-07-18] MEDS: LISINOPRIL 5 MG TAB PO SCH (13:17)
--- NOTE | 2019-07-18 13:51 | P.PN ---
Subjective This is a pleasant 83-year-old female past medical history significant for hypertension and dyslipidemia. She presented to the hospital with altered mental status and fevers. She's been diagnosed with right lower lobe pneumonia and H. influenzae bacteremia. She also had an abnormal troponin for which echocardiogram and cardiology consultation was requested. Echocardiogram reveals moderately impaired LV systolic function with ejection fraction 40-45%, moderate mitral annular calcification, moderate mitral regurgitation, mild to m oderate mitral stenosis with a mean gradient of 7 mmHg, mild to moderate tricuspid regurgitation and moderate pulmonary hypertension with an RVSP of 48 mmHg. Currently maintained on metoprolol 12.5 mg 4 times a day and aspirin 81 mg daily. Laboratory data reviewed, WBC 14.6, hemoglobin 11.4, platelets 278, sodium 144, potassium 4, creatinine 0.73. Blood pressure 135/67 heart rate 107. She's seen and examined laying flat in bed in no acute distress. She denies chest pain, shortness of breath, dizziness or palpitations. GENERAL: Well-appearing, well-nourished and in no acute distress. Laying flat in bed. NECK: Supple without JVD or thyromegaly. LUNGS: Breath sounds clear to auscultation bilaterally. Respiration equal and unlabored. No wheezes, rales or rhonchi. Diminished bilaterally. HEART: Regular rate and rhythm without murmurs, rubs or gallops. S1 and S2 heard. EXTREMITIES: Normal range of motion, no edema. No clubbing or cyanosis. Peripheral pulses intact. ASSESSMENT Sepsis secondary to pneumonia and bacteremia Abnormal troponin in the setting of sepsis secondary to a type II myocardial event secondary to supply demand mismatch. Acute systolic heart failure secondary to fluid resuscitation has improved with IV diuresis. Leukocytosis Hypertension Dyslipidemia PLAN Optimize her medical therapy by adding lisinopril 5 mg daily, aldactone 25 mg daily and atorvastatin 40 mg daily. Nurse Practitioner note has been reviewed, I agree with a documented findings and plan of care. Patient was seen and examined. Objective - Vital Signs Vital signs: Vital Signs Temp 98.6 F 07/18/19 08:00 Pulse 107 H 07/18/19 09:04 Resp 16 07/18/19 09:04 BP 135/67 07/18/19 08:00 Pulse Ox 95 07/18/19 08:00 Intake & Output 07/17/19 07/18/19 07/18/19 18:59 06:59 18:59 Intake Total 990 300 Output Total 1601 Balance -611 300 Weight 67.2 kg Intake: Intake, IV Titration 150 Amount Cefepime 2 gm In Sodium 100 Chloride 0.9% 100 ml @ 200 mls/hr IVPB Q12HR [facility] Rx#:[id number] cefTRIAXone 1 gm In 50 Sodium Chloride 0.9% 50 ml @ 100 mls/hr IVPB Q24HR [facility] Rx#:[id number] Oral 840 300 Output: Urine 1600 Stool 1 Other: Voiding Method Toilet Toilet Toilet # Voids 2 1 # Bowel Movements 2 - Labs CBC & Chem 7: 07/18/19 06:59 07/18/19 06:59 Labs: Abnormal Lab Results - Last 24 Hours (Table) 07/17/19 07/18/19 07/18/19 Range/Units 17:09 06:59 06:59 WBC 14.6 H (3.8-10.6) k/uL Potassium 3.2 L (3.5-5.1) mmol/L Chloride 109 H (98-107) mmol/L BUN 19 H (7-17) mg/dL Glucose 114 H (74-99) mg/dL Microbiology - Last 24 Hours (Table) 07/17/19 06:08 Blood Culture - Preliminary Blood No Growth after 24 hours 07/15/19 13:28 Blood Culture Gram Stain - Preliminary Blood Blood Culture - Final Haemophilus influenzae 07/15/19 13:28 Blood Culture - Final Blood
[2019-07-18] MEDS ORDERED: FUROSEMIDE 10 MG/ML 4 ML VIAL IV STA (15:18)
--- NOTE | 2019-07-18 20:05 | P.PN ---
Subjective Progress Note Date: 07/18/19 Principal diagnosis: Pneumonia Patient was seen and examined. No acute events overnight. Patient reports Improvement in Her Breathing since Admission. Continues to Complain of Shortness of Breath Especially with Ambulation. She Denies Any Chest Pain or Palpitations. No Nausea or Vomiting. No Fever or Chills. Objective - Vital Signs Vital signs: Vital Signs Temp 98.4 F 07/18/19 14:40 Pulse 87 07/18/19 14:40 Resp 17 07/18/19 14:40 BP 152/84 07/18/19 14:40 Pulse Ox 91 L 07/18/19 14:40 Intake & Output 07/18/19 07/18/19 07/19/19 06:59 18:59 06:59 Intake Total 300 100 Balance 300 100 Weight 67.2 kg Intake: Intake, IV Titration 100 Amount cefTRIAXone 2 gm In 100 Sodium Chloride 0.9% 50 ml @ 100 mls/hr IVPB Q24HR [facility] Rx#:[id number] Oral 300 Other: Voiding Method Toilet Toilet # Voids 1 - Exam General: [non toxic], [no distress], [appears at stated age] Derm: [warm], [dry] Head: [atraumatic], [normocephalic], [symmetric] Eyes: [EOMI], [no lid lag], [anicteric sclera] Mouth: [no lip lesion], [mucus membranes moist] Cardiovascular: [S1S2 reg], [tachycardia], [positive DP pulse bilateral], Lungs: [Good air entry bilateral], [basilar inspiratory crackles and expiratory wheezing] , [no accessory muscle use] Abdominal: [soft], [ nontender to palpation], [no guarding], [no appreciable organomegaly] Ext: [no gross muscle atrophy], [no edema], [no contractures] Neuro: [no focal neuro deficits] Psych: [Alert], [oriented], [appropriate affect] - Labs CBC & Chem 7: 07/18/19 06:59 07/18/19 06:59 Labs: Abnormal Lab Results - Last 24 Hours (Table) 07/18/19 07/18/19 Range/Units 06:59 06:59 WBC 14.6 H (3.8-10.6) k/uL Chloride 109 H (98-107) mmol/L BUN 19 H (7-17) mg/dL Glucose 114 H (74-99) mg/dL Microbiology - Last 24 Hours (Table) 07/15/19 13:28 Blood Culture Gram Stain - Final Blood Blood Culture - Final Haemophilus influenzae 07/17/19 06:08 Blood Culture - Preliminary Blood No Growth after 24 hours Assessment and Plan Assessment: Haemophilus influenza pneumonia with bacteremia and sepsis Acute on chronic systolic CHF exarcerbation Acute hypoxic respiratory failure secondary to above problems Troponin elevation, possible type II CO Rheumatoid arthritis CT chest shows right lower lobe infiltrate. Chest x-ray shows signs of fluid overload. Leukocytosis improving. Blood culture 07/15 positive for H. influenzae. Afebrile over the last 24 hours. Plans: Continue Rocephin. Follow ID consultation. Follow coxsackie B and parvovirus. Tylenol as needed for fever or chills. Albuterol as needed for shortness of breath and wheezing. Follow final blood cutures. Fluid overload on chest x ray. Plans: Given Lasix 40 mg IV one time dose today. Strict intake and outtake. Daily weights. Follow Chest x ray tomorrow. Follow Cardiology consultation. Plans: O2 per NC to maintain O2 saturation greater than 92 percent. Management as above. Troponin 0.544, 3.97, 3.34. Echocardiogram shows EF 40-45% without diastolic dys function. Plans: Continue aspirin and Lipitor. Continue beta dasha. Telemetry monitoring. Follow cardiology recommendations. Plans: Hold methotrexate. [Patient admitted for CHF and pneumonia. She is pending clinical improvement. Likely DC in 2-3 days.]
[2019-07-18] MEDS: ATORVASTATIN 40 MG TAB PO SCH (20:48)
--- NOTE | 2019-07-18 23:32 | PN ---
PROGRESS NOTE DATE OF SERVICE: 07/18/2019 REASON FOR FOLLOWUP: Haemophilus influenzae bacteremia, source likely pneumonia. INTERVAL HISTORY: The patient is currently afebrile. The patient has been breathing comfortably. Denies having any . She did have some cough, but not bringing up any sputum. No nausea, vomiting. No abdominal pain or diarrhea. PHYSICAL EXAMINATION: Blood pressure 139/72 with a pulse of 104, temperature 98.4. She is 95% on room air. General description is an elderly female lying in bed in no distress. RESPIRATORY SYSTEM: Unlabored breathing with decreased breath sounds at the base. No wheeze. HEART: S1, S2. Regular rate and rhythm. ABDOMEN: Soft. No tenderness. LABS: Hemoglobin is 11.4, white count 14.7, BUN of 19, creatinine 0.73. DIAGNOSTIC IMPRESSION AND PLAN: Patient with Haemophilus influenzae bacteremia, source likely pneumonia. The patient is currently covered with Rocephin 2 grams daily. Blood culture has been negative. Continue with supportive care. MMODL / IJN: [id number] /
[2019-07-19 07:21] LABS: Basophils # (A) 0.2 k/uL (0-0.2); Basophils % (A) 1 %; Eosinophils # (A) 0.1 k/uL (0-0.7); Eosinophils % (A) 1 %; HCT 40.8 % (34.0-46.0); Lymphocytes # (A) 1.3 k/uL (1.0-4.8); Lymphocytes % (A) 8 %; MCH 28.6 pg (25.0-35.0); MCHC 31.8 g/dL (31.0-37.0); MCV 90.1 fL (80.0-100.0); Mean Platelet Volume 7.3; Monocytes # (A) 0.8 k/uL (0-1.0); Monocytes % (A) 5 %; Neutrophils % (A) 83 %; Platelet Count 330 k/uL (150-450); RBC 4.53 m/uL (3.80-5.40); RDW 14.2 % (11.5-15.5); WBC 15.7 k/uL (3.8-10.6)
[2019-07-19 07:43] LABS: Calcium 8.7 mg/dL (8.4-10.2); Potassium 3.5 mmol/L (3.5-5.1)
[2019-07-19 07:58] LABS: Creatine Kinase MB 2.3 ng/mL (0.0-2.4)
[2019-07-19 08:03] LABS: Troponin I 0.369 ng/mL (0.000-0.034)
[2019-07-19] MEDS: HEPARIN SODIUM,PORCINE 5,000 UNIT/ML 1 ML VIAL SQ SCH ×3 (08:20→22:48)
--- NOTE | 2019-07-19 09:01 | XR ---
EXAMINATION TYPE: XR chest 1V portable DATE OF EXAM: 07/19/2019 COMPARISON: Prior chest x-ray 07/16/2019 HISTORY: Pneumonia, congestive heart failure TECHNIQUE: Single frontal view of the chest is obtained. FINDINGS: There is some improvement in the interstitium, aeration within the lungs. Heart is stable. No pneumothorax or evident sizable effusion. Right hemidiaphragm is elevated. IMPRESSION: Improvement in aeration, volume status.
[2019-07-19] MEDS: SPIRONOLACTONE 25 MG TAB PO SCH (09:40)
[2019-07-19] MEDS: METOPROLOL TARTRATE 12.5 MG TAB PO SCH ×4 (09:40→22:44)
[2019-07-19] MEDS: LISINOPRIL 5 MG TAB PO SCH (09:40)
[2019-07-19] MEDS: ASPIRIN 81 MG PO SCH (09:40)
[2019-07-19] MEDS: OSELTAMIVIR 75 MG CAP PO SCH (10:42)
--- NOTE | 2019-07-19 14:13 | PN ---
PROGRESS NOTE DATE OF SERVICE: 07/19/2019. REASON FOR FOLLOWUP: Haemophilus influenzae bacteremia source pneumonia. INTERVAL HISTORY: The patient is currently afebrile. Patient is more awake, alert. She is breathing comfortably. Patient denies having any chest pain. Still has some cough, but not bringing up any sputum. No nausea, no vomiting. No abdominal pain, no diarrhea. PHYSICAL EXAMINATION: Blood pressure 137/77 with the pulse of 101, temperature 98.2. She is 93% on room air. General description is an elderly female up in the chair in no distress. RESPIRATORY SYSTEM: Unlabored breathing, decreased breath sounds at the bases. No wheeze. HEART: S1, S2. Regular rate and rhythm. ABDOMEN: Soft, no tenderness. LABS: Hemoglobin 13, white count 15.7, BUN of 25, creatinine 0.82. DIAGNOSTIC IMPRESSION AND PLAN: Patient with Haemophilus influenzae bacteremia, source likely pneumonia. The patient unable to provide any sputum. Keep the patient on Rocephin 2 grams daily. Waiting for sensitivity. Chest x-ray this morning shows improvement. Continue supportive care. MMODL / IJN: [id number] /
--- NOTE | 2019-07-19 15:11 | P.PN ---
Subjective This is a pleasant 83-year-old female past medical history significant for hypertension and dyslipidemia. She presented to the hospital with altered mental status and fevers. She's been diagnosed with right lower lobe pneumonia and H. influenzae bacteremia. She also had an abnormal troponin for which echocardiogram and cardiology consultation was requested. Echocardiogram reveals moderately impaired LV systolic function with ejection fraction 40-45%, moderate mitral annular calcification, moderate mitral regurgitation, mild to m oderate mitral stenosis with a mean gradient of 7 mmHg, mild to moderate tricuspid regurgitation and moderate pulmonary hypertension with an RVSP of 48 mmHg. Currently maintained on metoprolol 12.5 mg 4 times a day and aspirin 81 mg daily. Laboratory data reviewed, WBC 14.6, hemoglobin 11.4, platelets 278, sodium 144, potassium 4, creatinine 0.73. Blood pressure 135/67 heart rate 107. She's seen and examined laying flat in bed in no acute distress. She denies chest pain, shortness of breath, dizziness or palpitations. 07/19/2019 Pt is seen and examined laying flat in bed sleeping. She opens her eyes to verbal stimuli however just stares and is not speaking. Per the nursing staff this has been her behaviour all morning. She is no acute distress and does allow me to examine her. Currently maintained on atorvastatin 40 mg daily, lisinopril 5 mg daily, lopressor 12.5 mg QID and aldactone 25 mg daily. Blood pressure 137/77 heart rate 101. Laboratory data reviewed, WBC 15.7, hemoglobin 13, platelets 330, sodium 143, potassium 3.5, creatinine 0.82, troponin 0.369. Viral titers pending. GENERAL: Well-appearing, well-nourished and in no acute distress. Laying flat in bed. NECK: Supple without JVD or thyromegaly. LUNGS: Breath sounds clear to auscultation bilaterally. Respiration equal and unlabored. No wheezes, rales or rhonchi. Diminished bilaterally. HEART: Regular rate and rhythm without murmurs, rubs or gallops. S1 and S2 heard. EXTREMITIES: Normal range of motion, no edema. No clubbing or cyanosis. Peripheral pulses intact. ASSESSMENT Sepsis secondary to pneumonia and bacteremia with H. influenza initially. Subsequent 2 blood cultures negative Abnormal troponin in the setting of sepsis secondary to a type II myocardial event secondary to supply demand mismatch. Acute systolic heart failure secondary to fluid resuscitation has improved with IV diuresis. EF 40-45% Leukocytosis Hypertension Dyslipidemia Valvular heart disease, MR, MS, TR Pulmonary hypertension PLAN Continue current medical regimen. Clinically she is stable. Further outpatient evaluation and work-up for cardiomyopathy. Follow up with Dr. Stephen in 2 weeks. Nurse Practitioner note has been reviewed, I agree with a documented findings and plan of care. Patient was seen and examined. Objective - Vital Signs Vital signs: Vital Signs Temp 98.2 F 07/19/19 07:00 Pulse 101 H 07/19/19 07:00 Resp 18 07/19/19 07:00 BP 137/77 07/19/19 07:00 Pulse Ox 93 L 07/19/19 07:00 Intake & Output 07/18/19 07/19/19 07/19/19 18:59 06:59 18:59 Intake Total 100 Output Total 1 Balance 100 -1 Weight 64 kg Intake: Intake, IV Titration 100 Amount cefTRIAXone 2 gm In 100 Sodium Chloride 0.9% 50 ml @ 100 mls/hr IVPB Q24HR [facility] Rx#:[id number] Output: Stool 1 Other: Voiding Method Toilet Toilet Toilet # Voids 3 - Labs CBC & Chem 7: 07/19/19 06:43 07/19/19 06:43 Labs: Abnormal Lab Results - Last 24 Hours (Table) 07/19/19 07/19/19 07/19/19 Range/Units 06:43 06:43 06:43 WBC 15.7 H (3.8-10.6) k/uL Neutrophils # 13.0 H (1.3-7.7) k/uL Carbon Dioxide 32 H (22-30) mmol/L BUN 25 H (7-17) mg/dL Glucose 123 H (74-99) mg/dL Troponin I 0.369 H* (0.000-0.034) ng/mL Microbiology - Last 24 Hours (Table) 07/18/19 06:59 Blood Culture - Preliminary Blood No Growth after 24 hours 07/17/19 06:08 Blood Culture - Preliminary Blood No Growth after 48 hours 07/15/19 13:28 Blood Culture Gram Stain - Final Blood Blood Culture - Final Haemophilus influenzae
--- NOTE | 2019-07-19 15:23 | P.PN ---
Subjective Progress Note Date: 07/19/19 Principal diagnosis: Pneumonia Patient was seen and examined. No acute events overnight. Patient reports improvement in her breathing since yesterday. She complains a cough but unable to cough up sputum. She denies any chest pain or palpitations. No nausea or vomiting. No fever or chills. Objective - Vital Signs Vital signs: Vital Signs Temp 98.2 F 07/19/19 07:00 Pulse 101 H 07/19/19 07:00 Resp 18 07/19/19 07:00 BP 137/77 07/19/19 07:00 Pulse Ox 93 L 07/19/19 07:00 Intake & Output 07/18/19 07/19/19 07/19/19 18:59 06:59 18:59 Intake Total 100 1520 Output Total 1 Balance 100 1519 Weight 64 kg Intake: Intake, IV Titration 100 100 Amount cefTRIAXone 2 gm In 100 100 Sodium Chloride 0.9% 50 ml @ 100 mls/hr IVPB Q24HR [facility] Rx#:[id number] Oral 1420 Output: Stool 1 Other: Voiding Method Toilet Toilet Toilet # Voids 3 - Exam General: [non toxic], [no distress], [appears at stated age] Derm: [warm], [dry] Head: [atraumatic], [normocephalic], [symmetric] Eyes: [EOMI], [no lid lag], [anicteric sclera] Mouth: [no lip lesion], [mucus membranes moist] Cardiovascular: [S1S2 reg], [tachycardia], [positive DP pulse bilateral], Lungs: [Good air entry bilateral], [no rales or crackles] , [no accessory muscle use] Abdominal: [soft], [ nontender to palpation], [no guarding], [no appreciable organomegaly] Ext: [no gross muscle atrophy], [no edema], [no contractures] Neuro: [no focal neuro deficits] Psych: [Alert], [oriented], [appropriate affect] - Labs CBC & Chem 7: 07/19/19 06:43 07/19/19 06:43 Labs: Abnormal Lab Results - Last 24 Hours (Table) 07/19/19 07/19/19 07/19/19 Range/Units 06:43 06:43 06:43 WBC 15.7 H (3.8-10.6) k/uL Neutrophils # 13.0 H (1.3-7.7) k/uL Carbon Dioxide 32 H (22-30) mmol/L BUN 25 H (7-17) mg/dL Glucose 123 H (74-99) mg/dL Troponin I 0.369 H* (0.000-0.034) ng/mL Microbiology - Last 24 Hours (Table) 07/18/19 06:59 Blood Culture - Preliminary Blood No Growth after 24 hours 07/17/19 06:08 Blood Culture - Preliminary Blood No Growth after 48 hours 07/15/19 13:28 Blood Culture Gram Stain - Final Blood Blood Culture - Final Haemophilus influenzae Assessment and Plan Assessment: Haemophilus influenza pneumonia with bacteremia and sepsis Acute on chronic systolic CHF exarcerbation Acute hypoxic respiratory failure secondary to above problems Troponin elevation, possible type II [place] Rheumatoid arthritis CT chest shows right lower lobe infiltrate. Chest x-ray shows signs of fluid overload. Leukocytosis improving. Blood culture 07/15 positive for H. influenzae . Afebrile over the last 24 hours. Plans: Continue Rocephin. Follow ID consultation. Follow coxsackie B and parvovirus. Tylenol as needed for fever or chills. Albuterol as needed for shortness of breath and wheezing. Follow final blood cutures. Today's chest x-ray improved. Plans: Strict intake and outtake. Continue JOSE LUIS inhibitor and beta dasha. Daily weights. Follow Cardiology consultation. Add Lasix by mouth. Plans: O2 per NC to maintain O2 saturation greater than 92 percent. Management as above. Troponin 0.544, 3.97, 3.34. Echocardiogram shows EF 40-45% without diastolic dysfunction. Plans: Continue aspirin and Lipitor. Continue beta dasha. Telemetry monitoring. Follow cardiology recommendations. Plans: Hold methotrexate. [Patient admitted for CHF and pneumonia. Sensitivities pending as per ID for antibiotic selection. Likely DC in 1-2 days.]
[2019-07-19] MEDS: ATORVASTATIN 40 MG TAB PO SCH (22:44)
[2019-07-20 01:05] VITALS: RESP 16
[2019-07-20 08:10] VITALS: BP 104/67; PULSE 88; TEMP 98.1
[2019-07-20] MEDS ORDERED: FUROSEMIDE 40 MG TAB PO SCH (09:00)
[2019-07-20] MEDS ORDERED: OSELTAMIVIR 60 MG/10 ML ORAL SYRINGE PO SCH (09:00)
[2019-07-20] MEDS: LISINOPRIL 5 MG TAB PO SCH (09:30)
[2019-07-20] MEDS: SPIRONOLACTONE 25 MG TAB PO SCH (09:30)
[2019-07-20] MEDS: METOPROLOL TARTRATE 12.5 MG TAB PO SCH (09:30)
[2019-07-20] MEDS: ASPIRIN 81 MG PO SCH (09:30)
[2019-07-20] MEDS: HEPARIN SODIUM,PORCINE 5,000 UNIT/ML 1 ML VIAL SQ SCH (09:30)
--- NOTE | 2019-07-20 09:35 | P.DS ---
Providers Date of admission: 07/15/19 15:54 Expected date of discharge: 07/20/19 Attending physician: Bj Clifton MD Consults: 07/15/19 17:17 Consult Physician Routine Consulting Provider: Delia Apodaca Consult Reason/Comments: Sepsis Do you want consulting provider notified?: Yes 07/16/19 02:17 Consult Physician Urgent Consulting Provider: Brad Balbuena Consult Reason/Comments: Troponin elevated Do you want consulting provider notified?: Yes Primary care physician: Jo Simons MD Hospital Course: This is a 83-year-old female with past medical history of rheumatoid arthritis and hypothyroidism who came to emergency department for ablation of generalized weakness and confusion. In emergency department she was found to have white cell count of 18 with predominance of neutrophils. Potassium was 3.4 and creatinine BUN elevated with elevated glucose. Lactic acid was 2.2 and she has mildly elevated liver enzymes and alk phos with normal bilirubin. CT of the head was unremarkable. Ultrasound of the right upper quadrant was not definitive for cholecystitis. Chest x-ray did not show any acute infiltrates. She was given IV fluids and ceftriaxone and admitted for further workup. On July 16 18 was called for diaphoresis and respiratory distress. She was noted to have a T-max of 102.2 Fahrenheit with a pulse of 140. She was initially started on azithromycin and ceftriaxone for possible pneumonia. She was given 1 L bolus for sepsis and CT chest abdomen and pelvis was obtained. CT was significant for mild nodular infiltrate in the right lower lobe. Blood cultures also came back with beta lactamase negative Haemophilus influenza. Infectious disease was consulted and recommended continuing ceftriaxone and repeat blood cultures. Repeat blood cultures were negative at 48 hours at time of discharge. Patient progressively improved with regard to her breathing and mentation. Repeat chest x-ray during hospitalization did show signs of fluid overload. Cardiology was consulted and echocardiogram was obtained. Echocardiogram showed EF 40-45% with normal wall thickness. She was given intermittent doses of Bumex and Lasix with repeat chest x-ray showing improved aeration. She also did have elevated troponins of 0.544, 3.97, 3.34, 0.369. This was thought to be demand ischemia from sepsis. Cardiology recommended no further workup. Patient was seen and examined. No acute events overnight. Patient reports improvement in her breathing. She denies any chest pain or palpitations. No nausea or vomiting. No fever or chills. General: [non toxic], [no distress], [appears at stated age] Derm: [warm], [dry] Head: [atraumatic], [normocephalic], [symmetric] Eyes: [EOMI], [no lid lag], [anicteric sclera] Mouth: [no lip lesion], [mucus membranes moist] Cardiovascular: [S1S2 reg], [no murmur], [positive DP pulse bilateral], Lungs: [Good air entry bilateral], [no rales or crackles] , [no accessory muscle use] Abdominal: [soft], [ nontender to palpation], [no guarding], [no appreciable organomegaly] Ext: [no gross muscle atrophy], [no edema], [no contractures] Neuro: [no focal neuro deficits] Psych: [Alert], [oriented], [appropriate affect] Haemophilus influenza pneumonia with bacteremia and sepsis Acute on chronic systolic CHF exarcerbation Acute hypoxic respiratory failure secondary to above problems Troponin elevation, possible type II [place] Rheumatoid arthritis CT chest shows right lower lobe infiltrate. Chest x-ray shows signs of fluid overload. Leukocytosis improving, slightly worsened to 15.7 July 19. Blood culture 07/15 positive for H. influenzae beta-lactamase negative. Afebrile over the last 24 hours. Repeat blood cultures negative at 48 hours. Plans: Transitioned to Augmentin to complete a total of 10 days. Follow ID consultation. Follow coxsackie B and parvovirus. Tylenol as needed for fever or chills. Albuterol as needed for shortness of breath and wheezing. Follow final blood cutures. Today's chest x-ray improved. Plans: Strict intake and outtake. Continue JOSE LUIS inhibitor and beta dasha. Daily weights. Follow Cardiology consultation. Add Lasix by mouth. Plans: O2 per NC to maintain O2 saturation greater than 92 percent. Management as above. Troponin 0.544, 3.97, 3.34. Echocardiogram shows EF 40-45% without diastolic dysfunction. Plans: Continue aspirin and Lipitor. Continue beta dasha. Telemetry monitoring. Follow cardiology recommendations. Plans: Hold methotrexate. [Patient admitted for CHF and pneumonia. Patient clinically improved. I called microbiology at [facility] and cultures are final for Haemophilus influenza beta lactamase negative with no sensitivities. Patient likely to be discharged today to complete 10 days of Augmentin. She will follow-up with her PCP for follow-up of final repeat blood cultures and repeat chest x-ray within 1 week. Patient evaluated by PT and wants to go home with home care. This complex discharge took 45 minutes to complete.] Pertinent Studies: Chest x-ray, gallbladder ultrasound, brain CT, CT abdomen chest and pelvis, echocardiogram Patient Condition at Discharge: Stable Plan - Discharge Summary Discharge Rx Participant: No New Discharge Prescriptions: New Spironolactone [Aldactone] 25 mg PO DAILY #30 tab Aspirin 81 mg PO DAILY #30 chew Amoxic-Pot Clav 875-125Mg [Augmentin 875-125] 1 tab PO Q12HR #16 tablet Furosemide [Lasix] 40 mg PO DAILY #30 tab Atorvastatin [Lipitor] 40 mg PO HS #30 tab Metoprolol Tartrate [Lopressor] 12.5 mg PO QID #120 tab Lisinopril [Zestril] 5 mg PO DAILY #30 tab Continue Multivitamins, Thera [Multivitamin (formulary)] 1 tab PO DAILY Fish Oil/Dha/Epa [Fish Oil 1,200 mg Fish Oil] 2 cap PO DAILY Thiamine HCl [Vitamin B-1] 100 mg PO DAILY Calcium Carbonate/Vitamin D3 [Calcium 600-Vit D3 500 Softgel] 1 cap PO DAILY Potassium Chloride [Klor-Con 20] 20 meq PO DAILY Levothyroxine Sodium [Synthroid] 88 mcg PO DAILY Methotrexate Sodium [Methotrexate] 15 mg PO WE Folic Acid 5 mg PO DAILY Cyanocobalamin [Vitamin B-12 Injection] 1,000 mcg SQ QMONTH Glucosam/Guy-Msm1/C/Zion/Bosw [Glucosamine-Chondroitin Tablet] 2 tab PO DAILY Melatonin 5 mg PO HS Discontinued Simvastatin 10 mg PO HS Triamterene/Hydrochlorothiazid [Triamterene-Hctz 37.5-25 mg Tb] 1 tab PO DAILY Discharge Medication List Calcium Carbonate/Vitamin D3 [Calcium 600-Vit D3 500 Softgel] 1 cap PO DAILY 07/15/19 [History] Cyanocobalamin [Vitamin B-12 Injection] 1,000 mcg SQ QMONTH 07/15/19 [History] Fish Oil/Dha/Epa [Fish Oil 1,200 mg Fish Oil] 2 cap PO DAILY 07/15/19 [History] Folic Acid 5 mg PO DAILY 07/15/19 [History] Glucosam/Guy-Msm1/C/Zion/Bosw [Glucosamine-Chondroitin Tablet] 2 tab PO DAILY 07/15/19 [History] Levothyroxine Sodium [Synthroid] 88 mcg PO DAILY 07/15/19 [History] Melatonin 5 mg PO HS 07/15/19 [History] Methotrexate Sodium [Methotrexate] 15 mg PO WE 07/15/19 [History] Multivitamins, Thera [Multivitamin (formulary)] 1 tab PO DAILY 07/15/19 [History] Potassium Chloride [Klor-Con 20] 20 meq PO DAILY 07/15/19 [History] Thiamine HCl [Vitamin B-1] 100 mg PO DAILY 07/15/19 [History] Amoxic-Pot Clav 875-125Mg [Augmentin 875-125] 1 tab PO Q12HR #16 tablet 07/20/19 [Rx] Aspirin 81 mg PO DAILY #30 chew 07/20/19 [Rx] Atorvastatin [Lipitor] 40 mg PO HS #30 tab 07/20/19 [Rx] Furosemide [Lasix] 40 mg PO DAILY #30 tab 07/20/19 [Rx] Lisinopril [Zestril] 5 mg PO DAILY #30 tab 07/20/19 [Rx] Metoprolol Tartrate [Lopressor] 12.5 mg PO QID #120 tab 07/20/19 [Rx] Spironolactone [Aldactone] 25 mg PO DAILY #30 tab 07/20/19 [Rx] Follow up Appointment(s)/Referral(s): Rahul Stephen MD [STAFF PHYSICIAN] - 2 Weeks [facility], [NON-STAFF] - Jo Simons MD [Primary Care Provider] - 1-2 days Activity/Diet/Wound Care/Special Instructions: Diet: Cardiac Follow-up PCP within 3 days of discharge. Follow-up cardiology within 1 week of discharge. Follow-up with PCP for follow-up of repeat blood cultures that were negative at 48 hours. Your initial blood cultures were positive for Haemophilus influenza beta lactamase negative, take Augmentin 1 tab twice a day for 8 more days to complete a total of 10 days. Repeat chest x-ray within 1 week with your PCP. Take all medications as advised. Come back to the ED or call 911 for worsening chest pain, shortness of breath or palpitations or dizziness. Discharge Disposition: HOME WITH HOME HEALTH SERVICES
--- NOTE | 2019-07-20 15:25 | PN ---
PROGRESS NOTE DATE OF SERVICE: 07/20/2019 REASON FOR FOLLOWUP: Haemophilus influenzae pneumonia and bacteremia. INTERVAL HISTORY: The patient is currently afebrile. The patient has been breathing comfortably. The patient denies having any chest pain or shortness of breath. Minimal cough. No nausea or vomiting. No abdominal pain or diarrhea. PHYSICAL EXAMINATION: Blood pressure 104/67, pulse of 88. Temperature 98.1. She is 97% on room air. General description is an elderly female lying in bed in no distress. RESPIRATORY SYSTEM: Unlabored breathing. Clear to auscultation anteriorly. HEART: S1, S2. Regular rate and rhythm. ABDOMEN: Soft. No tenderness. LAB: Follow-up blood cultures of 07/17 and 07/18/2019 have been negative. DIAGNOSTIC IMPRESSION AND PLAN: Patient with Haemophilus influenzae bacteremia, beta-lactamase negative. Overall improved response to Rocephin 2 grams daily. Plan to finish therapy with oral Ceftin 500 mg twice a day for another 8 to 9 days to finish a total 2-week course of therapy and continue supportive care. Family at the bedside. Their questions were answered. MMODL / IJN: [id number] /
== END 2019-07-20 15:10 | disposition home health service (06) | DRG 871 ==
LOC: EC 12:10 → 5NMEDONC 15:54 → 6NMEDSUR 16:52 → 3SCARD 07-16 00:48 → 4SSUR 07-17 20:58
PROVIDERS: ADMIT Hospitalist; ATTEND Hospitalist
DX: A41.3 Sepsis due to Hemophilus influenzae (principal); I21.A1 Myocardial infarction type 2; I50.43 Acute on chronic combined systolic (congestive) and diastolic (congestive) heart failure; J14 Pneumonia due to Hemophilus influenzae; J96.01 Acute respiratory failure with hypoxia; G92 Toxic encephalopathy; R18.8 Other ascites; I45.2 Bifascicular block; N17.9 Acute kidney failure, unspecified; E11.65 Type 2 diabetes mellitus with hyperglycemia; E03.9 Hypothyroidism, unspecified; E78.5 Hyperlipidemia, unspecified; E87.6 Hypokalemia; I08.1 Rheumatic disorders of both mitral and tricuspid valves; I11.0 Hypertensive heart disease with heart failure; I27.20 Pulmonary hypertension, unspecified; E86.0 Dehydration; M06.9 Rheumatoid arthritis, unspecified; R53.81 Other malaise; M35.3 Polymyalgia rheumatica; Z79.82 Long term (current) use of aspirin; Z79.890 Hormone replacement therapy; Z79.899 Other long term (current) drug therapy; Z82.49 Family history of ischemic heart disease and other diseases of the circulatory system; Z83.3 Family history of diabetes mellitus; Z85.828 Personal history of other malignant neoplasm of skin; Z87.891 Personal history of nicotine dependence
CPT/HCPCS: 36415; 70450; 71045; 71046; 71260; 74177; 76705; 80048; 80053; 80074; 80306; 81001; 82550; 82553; 82570; 82728; 83036; 83605; 83735; 84132; 84145; 84156; 84439; 84443; 84484; 85025; 85027; 85610; 85652; 85730; 86140; 86658; 86747; 87040; 87502; 93005; 93306; 94640; 94760; 96361; 96374; 96375; 99285

== ENCOUNTER → 2020-03-26 | Outpatient (CLI) | payer MEDICARE ==
--- NOTE | 2020-03-26 15:53 | US ---
EXAMINATION TYPE: US liver DATE OF EXAM: 03/26/2020 COMPARISON: NONE CLINICAL HISTORY: R74.8 Abn levels serum enzymes. elevated lft's after taking methotrexate for arthr itis, patient has stopped medication now EXAM MEASUREMENTS: Liver Length: 12.2 cm Gallbladder Wall: 0.2 cm CBD: 0.6 cm Right Kidney: 8.0 x 3.4 x 3.9 cm Pancreas: wnl Liver: wnl Gallbladder: neck fold seen Evidence for sonographic Pantoja's sign: no CBD: wnl Right Kidney: small in size IMPRESSION: 1. Abdomen ultrasound as visualized.
== END | disposition home or self-care (01) ==
LOC: RADUSWWP 09:58
PROVIDERS: ATTEND Internal Medicine Gastroenterology
DX: R74.8 Abnormal levels of other serum enzymes (principal)
CPT/HCPCS: 76705

== ENCOUNTER → 2023-12-06 | Outpatient (CLI) | payer MEDICARE ==
--- NOTE | 2023-12-06 13:10 | XR ---
EXAMINATION TYPE: XR femur LT DATE OF EXAM: 12/06/2023 12:53 PM CLINICAL INDICATION:Female, 88 years old with history of [id number] LT HIP PAIN,LT LEG PAIN; [facility] COMPARISON: None TECHNIQUE: XR femur LT examined in Frontal and lateral projections. FINDINGS/IMPRESSION: 1. Cortically irregularity of the medial distal femur unclear if this is a fracture in the setting of trauma. Consider further evaluation with CT imaging. 2. Mild degeneration changes of the hip in the with osteophyte formation and joint space narrowing..
== END | disposition home or self-care (01) ==
LOC: RADXRYALE 12:36
PROVIDERS: ATTEND Internal Medicine
DX: M25.752 Osteophyte, left hip (principal)